=== PATIENT | female | born 1930 | race Caucasian/White ===

== ENCOUNTER → 2016-11-05 | Outpatient (CLI) | payer MEDICARE, BC ==
[~2016-11-05] MED LIST: DENOSUMAB 60 MG/ML 1 ML SYRINGE SQ ONE
[2016-11-05 13:41] VITALS: BP 160/73; PULSE 95; RESP 16; TEMP 97.8
== END | disposition home or self-care (01) ==
LOC: PROCWHC3 13:09
PROVIDERS: ATTEND Internal Medicine Rheumatology
DX: M81.0 Age-related osteoporosis without current pathological fracture (principal)
CPT/HCPCS: 96372; J0897

== ENCOUNTER 2017-02-05 22:22 | Inpatient (IN) | payer MEDICARE, BC ==
[2017-02-05] MEDS ORDERED: SODIUM CHLORIDE 0.9% 1,000 ML IV ONE (23:48)
--- NOTE | 2017-02-05 23:52 | ED ---
Wound/Laceration HPI - General Chief Complaint: Wound/Laceration Stated Complaint: diabetic wound on foot Time Seen by Provider: 02/05/17 23:21 Source: patient, family, RN notes reviewed Mode of arrival: wheelchair Limitations: no limitations - History of Present Illness Initial Comments: Patient is a 87-year-old female presents to the emergency room for evaluation of left leg wound. Patient has a history of diabetes. Patient states she noticed a small ulcerating lesion forming over her anterior ankle a few months ago. Patient states that the lesion never healed and has gotten worse since. Patient states she now has a deep ulcer over her ankle. Patient states she followed up at the wound clinic on Saturday and had at debridement the area. Patient states yesterday she noticed redness and swelling in her left foot radiating up into her lower leg. Patient states that her home nurse saw her today and advised that she come to be evaluated in the emergency room. Patient states she has an appointment with the wound clinic tomorrow. Patient denies any fevers or chills. Patient denies nausea or vomiting. - Related Data Home Medications Medication Instructions Recorded Confirmed Cyclobenzaprine [Flexeril] 10 mg PO HS 08/20/14 02/06/17 Ergocalciferol [Vitamin D2 50,000 unit PO Q28D 08/20/14 02/06/17 (DRISDOL)] Hydroxychloroquine Sulfate 200 mg PO BID 08/20/14 02/06/17 [Plaquenil] Insulin Aspart [NovoLOG] See Protocol SQ AC-TID 08/20/14 02/06/17 Insulin Detemir [Levemir] 18 units SQ HS 08/20/14 02/06/17 Levothyroxine Sodium [Synthroid] 100 mcg PO DAILY 08/20/14 02/06/17 Loratadine [Claritin] 10 mg PO DAILY 08/20/14 02/06/17 Pravastatin Sodium [Pravachol] 20 mg PO DAILY 08/20/14 02/06/17 amLODIPine [Norvasc] 5 mg PO BID 08/20/14 02/06/17 Omeprazole 20 mg PO DAILY 04/30/16 02/06/17 Acetaminophen [Tylenol Arthritis] 1,300 mg PO BID 01/28/17 02/06/17 Furosemide [Lasix] 20 mg PO SUTUTHSA 01/28/17 02/06/17 Furosemide [Lasix] 40 mg PO MOWEFR 01/28/17 02/06/17 Ranitidine HCl [Zantac] 150 mg PO BID 01/28/17 02/06/17 Cinacalcet [Sensipar] 30 mg PO Q7D 02/05/17 02/06/17 Clotrimazole/Betamethasone Dip 1 applic TOPICAL DAILY 02/05/17 02/06/17 [Lotrisone Cream] Collagenase [Santyl] 1 applic TOPICAL DAILY 02/05/17 02/06/17 Cranberry Extract [Cranberry] 500 mg PO BID 02/05/17 02/06/17 Gabapentin [Neurontin] 200 mg PO HS 02/05/17 02/06/17 L.acidoph,Paracasei, B.lactis 1 cap PO DAILY 02/05/17 02/06/17 [Probiotic] Lisinopril [Zestril] 2.5 mg PO DAILY 02/05/17 02/06/17 Magnesium Oxide [Mag-Ox] 400 mg PO DAILY 02/05/17 02/06/17 Melatonin 3 mg PO HS 02/05/17 02/06/17 Pilocarpine [Salagen] 5 mg PO TID 02/05/17 02/06/17 Allergies Allergy/AdvReac Type Severity Reaction Status Date / Time levofloxacin [From Levaquin] Allergy Rash/Hives Verified 02/05/17 23:52 Review of Systems ROS Statement: Those systems with pertinent positive or pertinent negative responses have been documented in the HPI. ROS Other: All systems not noted in ROS Statement are negative. Past Medical History Past Medical History: Diabetes Mellitus, Hypertension, Osteoarthritis (OA), Rheumatoid Arthritis (RA), Thyroid Disorder Additional Past Medical History / Comment(s): osteoporosis. sjogren's syndrome. HX UTI's History of Any Multi-Drug Resistant Organisms: None Reported Past Surgical History: Back Surgery, Joint Replacement, Orthopedic Surgery Additional Past Surgical History / Comment(s): bilateral hip replacements. right knee replacement. right ankle. Bilateral carpal tunnel surgery Past Anesthesia/Blood Transfusion Reactions: No Reported Reaction Past Psychological History: No Psychological Hx Reported Smoking Status: Never smoker Past Alcohol Use History: None Reported Past Drug Use History: None Reported - Past Family History Mother Family Medical History: Coronary Artery Disease (CAD) Father Family Medical History: Blood Disorder, Vascular Disorder Additional Family Medical History / Comment(s): from anuersym General Exam - General Exam Comments Initial Comments: Sitting in exam room, no acute distress. Limitations: no limitations General appearance: alert, in no apparent distress Head exam: Present: atraumatic, normocephalic, normal inspection Eye exam: Present: normal appearance ENT exam: Present: normal exam Neck exam: Present: normal inspection Respiratory exam: Present: normal lung sounds bilaterally. Absent: respiratory distress Cardiovascular Exam: Present: regular rate, normal rhythm, normal heart sounds Left Ankle exam: Present: full ROM, tenderness. Absent: normal inspection (1 cm in diameter deep ulceration over the anterior ankle. Erythema and edema of foot radiating up to mid lower leg circumferentially, consistent with cellulitis.) Foot/Toe exam: Present: full ROM. Absent: tenderness Neurovascular tendon exam: Absent: pulse deficit (2+ dorsal pedal circular pulses), abnormal cap refill (Capillary refill less than 2 seconds) Back exam: Present: normal inspection Neurological exam: Present: alert, oriented X3 Psychiatric exam: Present: normal affect, normal mood Skin exam: Present: warm, dry. Absent: rash Course Vital Signs 02/05/17 02/06/17 22:50 03:00 Temperature 98.3 F 97.0 F L Pulse Rate 94 90 Respiratory 18 16 Rate Blood Pressure 130/60 138/65 O2 Sat by Pulse 96 96 Oximetry Medical Decision Making - Medical Decision Making Patient is a 87-year-old female presents to the emergency room for evaluation of left leg ulcer and cellulitis. WBC within normal limits. Blood culture pending. Patient does have significant cellulitis of left lower extremity. Case discussed with Dr. Leger. Dr. Leger discussed case with Dr. Arias who agreed to admit patient. Patient will be started on Vanco. Patient will be consulted with infectious disease tomorrow. - Lab Data Result diagrams: 02/05/17 23:00 02/05/17 23:00 Lab Results 02/05/17 02/05/17 02/05/17 Range/Units 23:00 23:00 23:00 WBC 8.7 (3.8-10.6) k/uL RBC 3.77 L (3.80-5.40) m/uL Hgb 11.9 (11.4-16.0) gm/dL Hct 35.3 (34.0-46.0) % MCV 93.6 (80.0-100.0) fL MCH 31.5 (25.0-35.0) pg MCHC 33.7 (31.0-37.0) g/dL RDW 13.7 (11.5-15.5) % Plt Count 317 (150-450) k/uL Neutrophils % 73 % Lymphocytes % 13 % Monocytes % 9 % Eosinophils % 2 % Basophils % 0 % Neutrophils # 6.4 (1.3-7.7) k/uL Lymphocytes # 1.2 (1.0-4.8) k/uL Monocytes # 0.8 (0-1.0) k/uL Eosinophils # 0.1 (0-0.7) k/uL Basophils # 0.0 (0-0.2) k/uL Sodium 138 (137-145) mmol/L Potassium 4.9 (3.5-5.1) mmol/L Chloride 104 (98-107) mmol/L Carbon Dioxide 21 L (22-30) mmol/L Anion Gap 13 mmol/L BUN 41 H (7-17) mg/dL Creatinine 2.00 H (0.52-1.04) mg/dL Est GFR (MDRD) Af Amer 29 (>60 ml/min/1.73 sqM) Est GFR (MDRD) Non-Af 24 (>60 ml/min/1.73 sqM) Glucose 108 H (74-99) mg/dL Plasma Lactic Acid Jalil 0.8 (0.7-2.0) mmol/L Calcium 8.8 (8.4-10.2) mg/dL Total Bilirubin 0.5 (0.2-1.3) mg/dL AST 34 (14-36) U/L ALT 39 (9-52) U/L Alkaline Phosphatase 88 (38-126) U/L Total Protein 6.9 (6.3-8.2) g/dL Albumin 3.9 (3.5-5.0) g/dL - Radiology Data Radiology results: report reviewed, image reviewed Disposition Clinical Impression: 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
[2017-02-06 00:14] LABS: Basophils % (A) 0 %; CH 30.7; Eosinophils # (A) 0.1 k/uL (0-0.7); Eosinophils % (A) 2 %; HCT 35.3 % (34.0-46.0); HDW 2.75; HGB 11.9 gm/dL (11.4-16.0); Luc # (Auto) 0.24; Luc % (Auto) 3; Lymphocytes # (A) 1.2 k/uL (1.0-4.8); Lymphocytes % (A) 13 %; MCH 31.5 pg (25.0-35.0); MCHC 33.7 g/dL (31.0-37.0); MCV 93.6 fL (80.0-100.0); Monocytes # (A) 0.8 k/uL (0-1.0); Monocytes % (A) 9 %; Neutrophils # (A) 6.4 k/uL (1.3-7.7); Neutrophils % (A) 73 %; RBC 3.77 m/uL (3.80-5.40); RDW 13.7 % (11.5-15.5); WBC 8.7 k/uL (3.8-10.6); WBC (Perox) 9.15
[2017-02-06 00:25] LABS: Calcium 8.8 mg/dL (8.4-10.2); Potassium 4.9 mmol/L (3.5-5.1); Total Bilirubin 0.5 mg/dL (0.2-1.3); Total Protein 6.9 g/dL (6.3-8.2)
--- NOTE | 2017-02-06 01:07 | US ---
EXAM: US Duplex Left Lower Extremity Veins. CLINICAL HISTORY: Reason: Pain TECHNIQUE: Real-time ultrasound scan of the veins of the left lower extremity with color Doppler flow, spectral waveform analysis and compression. COMPARISON: No relevant prior studies available. FINDINGS: Deep veins: Unremarkable. No DVT in the common femoral, femoral or popliteal veins. Superficial veins: Unremarkable. No thrombus in the visualized greater saphenous vein. Soft tissues: No acute findings. No popliteal cyst. IMPRESSION: No deep venous thrombosis in the left lower extremity.
[2017-02-06] MEDS ORDERED: ONDANSETRON 4 MG/2 ML VIAL IVP PRN (01:22)
[2017-02-06] MEDS ORDERED: ACETAMINOPHEN TAB 325 MG TAB PO PRN (01:22)
[2017-02-06] MEDS ORDERED: NALOXONE 0.4 MG/ML 1 ML VIAL IV PRN (01:22)
[2017-02-06] MEDS ORDERED: IV VANCOMYCIN PER PHARMACY 1 EACH MISC MISCELLANE PRN (01:26)
[2017-02-06] MEDS ORDERED: CINACALCET 30 MG TAB PO SCH (02:00)
[2017-02-06] MEDS ORDERED: VANCOMYCIN 1,500 MG in SODIUM CHLORIDE 0.9% 250 ML IVPB ONE (02:00)
[2017-02-06] MEDS ORDERED: FUROSEMIDE 40 MG TAB PO SCH (02:00)
[2017-02-06] MEDS: SODIUM CHLORIDE 0.9% 1,000 ML IV SCH ×3 (02:57→22:03)
[2017-02-06 03:37] VITALS: BMI 35.7
[2017-02-06 03:37] LABS: Glucose,Whole Blood 95 mg/dL (75-99)
[2017-02-06 07:33] LABS: Glucose,Whole Blood 157 mg/dL (75-99)
[2017-02-06] MEDS: INSULIN LISPRO (humaLOG) 300 UNIT/3 ML VIAL SQ SCH ×6 (08:00→22:02)
[2017-02-06] MEDS: PILOCARPINE 5 MG TAB PO SCH ×3 (08:32→22:03)
[2017-02-06] MEDS: amLODIPine 5 MG TAB PO SCH ×2 (08:32→22:01)
[2017-02-06] MEDS: FAMOTIDINE 20 MG TAB PO SCH ×2 (08:33→22:01)
[2017-02-06] MEDS: LACTOBACILLUS ACIDOPH & BULGAR 1 EACH PACKET PO SCH (08:33)
[2017-02-06] MEDS: MAGNESIUM OXIDE 400 MG TAB PO SCH (08:34)
[2017-02-06] MEDS: HYDROXYCHLOROQUINE SULFATE 200 MG TAB PO SCH ×2 (08:34→22:02)
[2017-02-06] MEDS: PANTOPRAZOLE 40 MG TABLET PO SCH (08:34)
[2017-02-06] MEDS: LORATADINE 10 MG TAB PO SCH (08:34)
[2017-02-06] MEDS: LEVOTHYROXINE 100 MCG TAB PO SCH (08:34)
[2017-02-06] MEDS: CLOTRIMAZOLE/BETAMETH 1-0.05% CREAM 45 GM TUBE TOPICAL SCH (08:35)
[2017-02-06] MEDS: PRAVASTATIN SODIUM 20 MG TAB PO SCH (08:35)
[2017-02-06] MEDS: COLLAGENASE 250 UNIT/GM OINTMENT 30 GM TUBE TOPICAL SCH (08:35)
[2017-02-06] MEDS ORDERED: LISINOPRIL 2.5 MG TAB PO SCH (09:00)
--- NOTE | 2017-02-06 09:20 | P.CONS ---
History of Present Illness - Reason for Consult Consult date: 02/06/17 Diabetic ulcer infection - History of Present Illness This is an 87-year-old female patient at the wound healing Center with history of chronic wounds most recently with a diabetic Sousa grade 3 ulceration to the left ankle. She was last seen there on Saturday, January 30 under the care of Dr. Thomas and had debridement done. She has not been on antibiotics. She does have home care set up. Patient states that yesterday morning she was feeling lightheaded and she did have an episode of diarrhea. She was seen by her home care nurse who thought her leg looked worse with spreading redness and advised her to come into the emergency center to be checked. Patient presented to [facility] emergency center. She has been afebrile. White count 8.7, BUN 41 creatinine 2. Creatinine usually runs about 1.6. Albumin was 3.9. She underwent an ultrasound of the left lower extremity which was negative for DVT. She states she has been eating and drinking okay. She denies any change in her appetite. She denies nausea, vomiting. No fever or chills. She denies having any falls or new injuries to her left leg. She was started on vancomycin and admitted to the [facility] floor. Wound culture on January 30 shows Enterococcus faecalis, diphtheroid species, Proteus mirabilis, diphtheroid species #2. Review of Systems All systems: negative Constitutional: Denies chills, Denies fever Eyes: denies blurred vision, denies pain Ears, nose, mouth and throat: Denies dental pain, Denies headache, Denies mouth pain, Denies sore throat Cardiovascular: Reports lightheadedness, Denies chest pain, Denies shortness of breath Respiratory: Denies cough Gastrointestinal: Denies abdominal pain, Denies diarrhea, Denies nausea, Denies vomiting Genitourinary: Denies dysuria, Denies hematuria Musculoskeletal: Denies myalgias Integumentary: Reports wounds, Denies pruritus, Denies rash Neurological: Denies numbness, Denies weakness Psychiatric: Denies anxiety, Denies depression Endocrine: Denies fatigue, Denies weight change Past Medical History Past Medical History: Diabetes Mellitus, Hypertension, Osteoarthritis (OA), Rheumatoid Arthritis (RA), Thyroid Disorder Additional Past Medical History / Comment(s): osteoporosis. sjogren's syndrome. HX UTI's History of Any Multi-Drug Resistant Organisms: None Reported Past Surgical History: Back Surgery, Joint Replacement, Orthopedic Surgery Additional Past Surgical History / Comment(s): bilateral hip replacements. right knee replacement. right ankle. Bilateral carpal tunnel surgery Past Anesthesia/Blood Transfusion Reactions: No Reported Reaction Past Psychological History: No Psychological Hx Reported Smoking Status: Never smoker Past Alcohol Use History: None Reported Additional Past Alcohol Use History / Comment(s): She lives at home with her . 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 She has no contact with any animals. Past Drug Use History: None Reported - Past Family History Mother Family Medical History: Coronary Artery Disease (CAD) Father Family Medical History: Blood Disorder, Vascular Disorder Additional Family Medical History / Comment(s): from anuersym Medications and Allergies Home Medications Medication Instructions Recorded Confirmed Type Cyclobenzaprine [Flexeril] 10 mg PO HS 08/20/14 02/06/17 History Ergocalciferol [Vitamin D2 50,000 unit PO Q28D 08/20/14 02/06/17 History (DRISDOL)] Hydroxychloroquine Sulfate 200 mg PO BID 08/20/14 02/06/17 History [Plaquenil] Insulin Aspart [NovoLOG] See Protocol SQ AC-TID 08/20/14 02/06/17 History Insulin Detemir [Levemir] 18 units SQ HS 08/20/14 02/06/17 History Levothyroxine Sodium [Synthroid] 100 mcg PO DAILY 08/20/14 02/06/17 History Loratadine [Claritin] 10 mg PO DAILY 08/20/14 02/06/17 History Pravastatin Sodium [Pravachol] 20 mg PO DAILY 08/20/14 02/06/17 History amLODIPine [Norvasc] 5 mg PO BID 08/20/14 02/06/17 History Omeprazole 20 mg PO DAILY 04/30/16 02/06/17 History Acetaminophen [Tylenol Arthritis] 1,300 mg PO BID 01/28/17 02/06/17 History Furosemide [Lasix] 20 mg PO SUTUTHSA 01/28/17 02/06/17 History Furosemide [Lasix] 40 mg PO MOWEFR 01/28/17 02/06/17 History Ranitidine HCl [Zantac] 150 mg PO BID 01/28/17 02/06/17 History Cinacalcet [Sensipar] 30 mg PO Q7D 02/05/17 02/06/17 History Clotrimazole/Betamethasone Dip 1 applic TOPICAL DAILY 02/05/17 02/06/17 History [Lotrisone Cream] Collagenase [Santyl] 1 applic TOPICAL DAILY 02/05/17 02/06/17 History Cranberry Extract [Cranberry] 500 mg PO BID 02/05/17 02/06/17 History Gabapentin [Neurontin] 200 mg PO HS 02/05/17 02/06/17 History L.acidoph,Paracasei, B.lactis 1 cap PO DAILY 02/05/17 02/06/17 History [Probiotic] Lisinopril [Zestril] 2.5 mg PO DAILY 02/05/17 02/06/17 History Magnesium Oxide [Mag-Ox] 400 mg PO DAILY 02/05/17 02/06/17 History Melatonin 3 mg PO HS 02/05/17 02/06/17 History Pilocarpine [Salagen] 5 mg PO TID 02/05/17 02/06/17 History Allergies Allergy/AdvReac Type Severity Reaction Status Date / Time levofloxacin [From Levaquin] Allergy Rash/Hives Verified 02/05/17 23:52 Physical Exam Vitals: Vital Signs Temp Pulse Pulse Resp BP BP Pulse Ox 02/06/17 07:00 96.3 F L 99 16 159/78 93 L 02/06/17 04:00 16 02/06/17 03:46 97.1 F L 90 16 144/69 94 L 02/06/17 03:00 97.0 F L 90 16 138/65 96 Intake and Output 02/05/17 02/06/17 02/06/17 22:59 06:59 14:59 Other: Voiding Method Bedside Commode Diaper Incontinent # Voids 2 Weight 91.5 kg Gen: This is a 87-year-old female. She is sitting up in bed appears to be in no acute distress. HEENT: Head is atraumatic, normocephalic. Pupils equal, round. Sclerae is anicteric. Gentle a slightly pale. Mucous membranes of the mouth are somewhat dry. NECK: Supple. No JVD. No lymphadenopathy. No thyromegaly. LUNGS: Clear to auscultation. No wheezes or rhonchi. No intercostal retractions. HEART: Regular rate and rhythm. No murmur. ABDOMEN: Soft. Bowel sounds are present. No masses. No tenderness. EXTREMITIES: 1+ pedal edema to the right lower extremity with erythema from the toes to the proximal tib-fib area. Ulcer noted to the anterior ankle. Dorsalis pedis + 1 bilaterally. NEUROLOGICAL: Patient is awake, alert and oriented x3. Cranial nerves 2 through 12 are grossly intact. Results Results: Laboratory Results WBC 8.7 k/uL (3.8-10.6) 02/05/17 23: RBC 3.77 m/uL (3.80-5.40) L 02/05/17: Hgb 11.9 gm/dL (11.4-16.0) 02/05/17: Hct 35.3 % (34.0-46.0) 02/05/17: MCV 93.6 fL (80.0-100.0) 02/05/17: MCH 31.5 pg (25.0-35.0) 02/05/17: MCHC 33.7 g/dL (31.0-37.0) 02/05/17: RDW 13.7 % (11.5-15.5) 02/05/17 23: Plt Count 317 k/uL (150-450) 02/05/17 23: Neutrophils % 73 % 02/05/17 23: Lymphocytes % 13 % 02/05/17: Monocytes % 9 % 02/05/17 23: Eosinophils % 2 % 02/05/17 23: Basophils % 0 % 02/05/17 23:00 Neutrophils # 6.4 k/uL (1.3-7.7) 02/05/17 23: Lymphocytes # 1.2 k/uL (1.0-4.8) 02/05/17 23: Monocytes # 0.8 k/uL (0-1.0) 02/05/17 23: Eosinophils # 0.1 k/uL (0-0.7) 02/05/17 23: Basophils # 0.0 k/uL (0-0.2) 02/05/17 23:00 Sodium 138 mmol/L (137-145) 02/05/17 23:00 Potassium 4.9 mmol/L (3.5-5.1) 02/05/17 23:00 Chloride 104 mmol/L (98-107) 02/05/17 23:00 Carbon Dioxide 21 mmol/L (22-30) L 02/05/17 23:00 Anion Gap 13 mmol/L 02/05/17 23:00 BUN 41 mg/dL (7-17) H 02/05/17 23:00 Creatinine 2.00 mg/dL (0.52-1.04) H 02/05/17 23:00 Est GFR (MDRD) Af Amer 29 (>60 ml/min/1.73 sqM) 02/05/17 23:00 Est GFR (MDRD) Non-Af 24 (>60 ml/min/1.73 sqM) 02/05/17 23:00 Glucose 108 mg/dL (74-99) H 02/05/17 23:00 POC Glucose (mg/dL) 157 mg/dL (75-99) H 02/06/17 07:14 POC Glu Oil Gauger ID Leena Ortega 02/06/17 07:14 Plasma Lactic Acid Jalil 0.8 mmol/L (0.7-2.0) 02/05/17 23:00 Calcium 8.8 mg/dL (8.4-10.2) 02/05/17 23:00 Total Bilirubin 0.5 mg/dL (0.2-1.3) 02/05/17 23:00 AST 34 U/L (14-36) 02/05/17 23:00 ALT 39 U/L (9-52) 02/05/17 23:00 Alkaline Phosphatase 88 U/L (38-126) 02/05/17 23:00 Total Protein 6.9 g/dL (6.3-8.2) 02/05/17 23:00 Albumin 3.9 g/dL (3.5-5.0) 02/05/17 23:00 CBC & Chem 7: 02/05/17 23:00 02/05/17 23:00 Labs: Abnormal Lab Results - Last 24 Hours (Table) 02/06/17 Range/Units 07:14 POC Glucose (mg/dL) 157 H (75-99) mg/dL Assessment and Plan Plan: This is an 87-year-old female who presented to the hospital with diabetic ulcer to the left lower extremity with increasing erythema and edema. Patient has been started on vancomycin which will be continued. Local wound care will be addressed. She has a wound culture previously obtained on January 30 through the wound healing Center. Blood culture is status received. Hemoglobin A1c is pending. Tight glucose control will be necessary to 8 in healing. Continue supportive care. Further recommendations as patient progresses. The above dictated assessment and findings were discussed with Dr. Melendrez. The impression and plan of care have been directed as dictated. Jayna Baker nurse practitioner acting as scribe for Dr. Melendrez. Time with Patient: Greater than 30
[2017-02-06 10:25] LABS: Basophils % (A) 0 %; CH 30.6; CHCM 32.1; Eosinophils # (A) 0.1 k/uL (0-0.7); Eosinophils % (A) 1 %; HCT 31.5 % (34.0-46.0); HGB 10.4 gm/dL (11.4-16.0); Luc # (Auto) 0.14; Luc % (Auto) 2; Lymphocytes # (A) 0.7 k/uL (1.0-4.8); Lymphocytes % (A) 11 %; MCH 31.6 pg (25.0-35.0); MCV 95.8 fL (80.0-100.0); Mean Platelet Volume 6.8; Monocytes # (A) 0.4 k/uL (0-1.0); Monocytes % (A) 6 %; Neutrophils # (A) 5.3 k/uL (1.3-7.7); Neutrophils % (A) 80 %; RBC 3.28 m/uL (3.80-5.40); RDW 13.8 % (11.5-15.5); WBC 6.6 k/uL (3.8-10.6)
[2017-02-06] MEDS: MORPHINE SULFATE 4 MG/ML SYRINGE IV PRN ×3 (11:37→22:15)
[2017-02-06 11:55] LABS: Glucose,Whole Blood 233 mg/dL (75-99)
[2017-02-06 13:18] LABS: Hemoglobin A1C 5.9 % (4.2-6.1)
--- NOTE | 2017-02-06 13:58 | HP ---
DATE OF ADMISSION: Patient is a pleasant 87-year-old female was sent in from the Wound Center because of significant extra and extensive cellulitis of the left foot, the patient is diabetic and has a left foot diabetic ulcer in the left leg area with cellulitis extending up to the knee area involving the whole leg and patient has a small ulcer in the dorsum of the foot which is about stage III, which is probably a diabetic foot ulcer and patient was already evaluated by Infectious Disease and patient is on vancomycin at this point of time and with a little bit of improvement in her cellulitis and patient had an ultrasound of the left lower extremity which is negative for any DVT and patient denied any fever, chills. Patient basically came in because of the pain and discoloration secondary to cellulitis. Patient does have history of Sjogren's for which patient is on immunosuppressants in the form of hydroxychloroquine or Plaquenil, which may have contributed to her severity of her cellulitis and patient does have CKD although patient does have acute renal failure. Patient never had any congestive heart failure history and never was admitted for CHF exacerbation, probably Lasix is not appropriate and patient will need compression socks and elevation of the legs for now. Lasix will be discontinued because it is affecting the kidney and even the Plaquenil dose may need to be reduced and I do not believe lisinopril is necessary at this point of time either because of the renal dysfunction with an acute component that will be discontinued as well. Patient will eventually once her kidney function stabilizes, will actually benefit from a lisinopril. For now will go ahead continue with amlodipine. REVIEW OF SYSTEMS: CONSTITUTIONAL: No fever, no malaise, no fatigue. HEENT: No recent visual problems or hearing problems. Denied any sore throat. CARDIOVASCULAR: No chest pain, orthopnea, PND, no palpitations, no syncope. PULMONARY: No shortness of breath, no cough, no hemoptysis. GASTROINTESTINAL: No diarrhea, no nausea, no vomiting, no abdominal pain. Normoactive bowel sounds. NEUROLOGICAL: No headaches, no weakness, no numbness. HEMATOLOGICAL: Denies any bleeding or petechiae. GENITOURINARY: Denies any burning micturition, frequency, or urgency. MUSCULOSKELETAL/RHEUMATOLOGICAL: Denies any joint pain, swelling, or any muscle pain. ENDOCRINE: Denies any polyuria or polydipsia. DERMATOLOGIC: As described in HPI. The rest of the 14 point review of systems is negative. PAST MEDICAL HISTORY: Diabetes mellitus, hypertension, osteoarthritis, and Sjogren's syndrome and osteoporosis, hypothyroidism. SOCIAL HISTORY: Denied any smoking, alcohol abuse or any drug abuse. FAMILY HISTORY: Mother had coronary artery disease and father had some kind of vascular disorder, from aneurysm. Home medications include: 1. Cyclobenzaprine. 2. Ergocalciferol hydroxychloroquine. 3. NovoLog. 4. Levemir 18 units. 5. Levothyroxine. 6. Loratadine. 7. Pravastatin. 8. Amlodipine. 9. Acetaminophen. 10. Lasix. 11. Ranitidine. 12. Cinacalcet. 13. Clotrimazole/betamethasone topical with collagenase. 14. Cranberry juice. 15. Gabapentin. 16. Lisinopril. 17. Magnesium oxide. 18. Melatonin. 19. Pilocarpine. ALLERGIES: Allergic to LEVOFLOXACIN. PHYSICAL EXAMINATION: Temperature 96.3, pulse of 99, respiratory rate of 16. Blood pressure 159/78, saturating at 93% on room air. PHYSICAL EXAMINATION: GENERAL: The patient is alert and oriented x3, not in any acute distress. Well developed, well nourished. HEENT: Pupils are round and equally reacting to light. EOMI. No scleral icterus. No conjunctival pallor. Normocephalic, atraumatic. No pharyngeal erythema. No thyromegaly. CARDIOVASCULAR: S1 and S2 present. No murmurs, rubs, or gallops. PULMONARY: Chest is clear to auscultation, no wheezing or crackles. ABDOMEN: Soft, nontender, nondistended, normoactive bowel sounds. No palpable organomegaly. MUSCULOSKELETAL: No joint swelling or deformity. NEUROLOGICAL: Gross neurological examination did not reveal any focal deficits. SKIN: No rashes. Left lower extremity and redness and ulcer, which is probably stage III as described above. Patient has localized of temperature in the cellulitic area as described in HPI and discoloration. LABORATORY DATA: CBC, CMP are abnormal for mildly low hemoglobin of 10.4, which appears to be chronic. Will need further evaluation as an outpatient, probably anemia of chronic kidney disease and bicarbonate of 21 and BUN of 41 creatinine of 2.0. Baseline appears to be around 1.6, which is stage III CKD and GFR of 29 which is consistent with stage III CKD. ASSESSMENT AND PLAN: 1. Left lower limb cellulitis. Patient is on vancomycin, left lower limb cellulitis and patient is immunosuppressed with hydroxychloroquine as well as diabetic and patient has a diabetic foot ulcer as well for which patient will need local wound care and patient is on IV antibiotics as mentioned above. 2. AKA chronic kidney disease stage III. Chronic kidney disease is basically because of diabetic nephropathy and AKA due to excessive diuretic therapy and lisinopril both of which will be held. 3. Hypertension. 4. Diabetes mellitus type 2. Will monitor the blood sugar, up-titrate the insulin as required and as of now patient's blood sugars are not that high because of her acute renal dysfunction. Patient has an anion gap, but lactic acid is only 0.8. Will continue with IV fluid she is on at this point of time. 5. Scleroderma. Patient is on 200 b.i.d. of hydroxychloroquine, we may need to cut it down and patient is also pilocarpine with will be continued. 6. Osteoarthritis. 7. Hypertension. 8. Hypothyroidism. For the above mentioned rest of the chronic medical problems except for those mentioned above, the rest of the medications will be continued.
[2017-02-06 16:48] LABS: Glucose,Whole Blood 98 mg/dL (75-99)
[2017-02-06 21:08] LABS: Glucose,Whole Blood 192 mg/dL (75-99)
[2017-02-06] MEDS: ACETAMINOPHEN TAB 500 MG TAB PO SCH (22:00)
[2017-02-06] MEDS: CYCLOBENZAPRINE 10 MG TAB PO SCH (22:01)
[2017-02-06] MEDS: GABAPENTIN 100 MG CAP PO SCH (22:02)
[2017-02-06] MEDS: MELATONIN 3 MG TABLET PO SCH (22:03)
--- NOTE | 2017-02-06 23:07 | P.CON ---
Consult Note - . 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 She was last seen there on Saturday, January 30 under the care of Dr. Thomas and had debridement done. She has not been on antibiotics. She does have home care set up. Patient states that yesterday morning she was feeling lightheaded and she did have an episode of diarrhea. She was seen by her home care nurse who thought her leg looked worse with spreading redness and advised her to come into the emergency center to be checked. Patient presented to [facility] emergency center. She has been afebrile. White count 8.7, BUN 41 creatinine 2. Creatinine usually runs about 1.6. Albumin was 3.9. She underwent an ultrasound of the left lower extremity which was negative for DVT. She states she has been eating and drinking okay. She denies any change in her appetite. She denies nausea, vomiting. No fever or chills. She denies having any falls or new injuries to her left leg. She was started on vancomycin and admitted to the [facility] floor. Wound culture on January 30 shows Enterococcus faecalis, diphtheroid species, Proteus mirabilis, diphtheroid species #2. Please see the consult note is dictated by nurse practitioner Mrs. Jayna Baker. Pleasant 87 -year-old woman who has a history of staphylococcal sepsis. And then a bout of E. coli sepsis in 2013. Now presents with the significant worsening ulceration to the left distal leg anterior surface associated with extensive cellulitis. Patient is somewhat uncomfortable due to the swelling and infection. Seems to be more comfortable at this time and earlier in the day. Outpatient cultures are reviewed and antibiotic therapy is altered to ampicillin sulbactam to cover the 4 isolate pathogens. Local wound care will be with opticell silver. Elevate the leg as much as she can tolerate Cultures are in process to ensure there is no bacteremia May require intravenous antibiotic therapy. Bone scan will be requested to ensure there is no deeper infection. I agree with evaluation, assessment and plan as dictated by nurse practitioner Mrs. Jayna Baker.
[2017-02-06] MEDS: AMPICILLIN-SULBACTAM 3 GM in SODIUM CHLORIDE 0.9% 100 ML IVPB SCH (23:16)
[2017-02-07] MEDS ORDERED: FUROSEMIDE 20 MG TAB PO SCH (01:51)
[2017-02-07] MEDS: MORPHINE SULFATE 4 MG/ML SYRINGE IV PRN ×2 (04:45→09:27)
[2017-02-07 07:38] LABS: Glucose,Whole Blood 138 mg/dL (75-99)
[2017-02-07] MEDS: AMPICILLIN-SULBACTAM 3 GM in SODIUM CHLORIDE 0.9% 100 ML IVPB SCH ×3 (08:05→23:20)
[2017-02-07] MEDS: PILOCARPINE 5 MG TAB PO SCH ×3 (08:05→21:05)
[2017-02-07] MEDS: LACTOBACILLUS ACIDOPH & BULGAR 1 EACH PACKET PO SCH (08:05)
[2017-02-07] MEDS: amLODIPine 5 MG TAB PO SCH ×2 (08:06→21:32)
[2017-02-07] MEDS: PRAVASTATIN SODIUM 20 MG TAB PO SCH (08:06)
[2017-02-07] MEDS: COLLAGENASE 250 UNIT/GM OINTMENT 30 GM TUBE TOPICAL SCH (08:06)
[2017-02-07] MEDS: HYDROXYCHLOROQUINE SULFATE 200 MG TAB PO SCH ×2 (08:06→21:33)
[2017-02-07] MEDS: ACETAMINOPHEN TAB 500 MG TAB PO SCH ×2 (08:07→21:26)
[2017-02-07] MEDS: FAMOTIDINE 20 MG TAB PO SCH (08:07)
[2017-02-07] MEDS: CLOTRIMAZOLE/BETAMETH 1-0.05% CREAM 45 GM TUBE TOPICAL SCH (08:07)
[2017-02-07] MEDS: LORATADINE 10 MG TAB PO SCH (08:10)
[2017-02-07] MEDS: PANTOPRAZOLE 40 MG TABLET PO SCH (08:10)
[2017-02-07] MEDS: MAGNESIUM OXIDE 400 MG TAB PO SCH (08:10)
[2017-02-07] MEDS: LEVOTHYROXINE 100 MCG TAB PO SCH (08:10)
[2017-02-07] MEDS: INSULIN LISPRO (humaLOG) 300 UNIT/3 ML VIAL SQ SCH ×8 (08:25→21:30)
[2017-02-07] MEDS ORDERED: VANCOMYCIN 1,250 MG in SODIUM CHLORIDE 0.9% 250 ML IVPB ONE (09:00)
[2017-02-07 09:07] LABS: CH 30.3; CHCM 31.6; HCT 30.9 % (34.0-46.0); HDW 2.66; HGB 9.8 gm/dL (11.4-16.0); Hypochromasia Slight; MCH 30.5 pg (25.0-35.0); MCHC 31.6 g/dL (31.0-37.0); MCV 96.5 fL (80.0-100.0); Mean Platelet Volume 6.9; RDW 13.7 % (11.5-15.5); WBC 5.4 k/uL (3.8-10.6)
[2017-02-07 09:20] LABS: Anion Gap 9 mmol/L; Blood Urea Nitrogen 27 mg/dL (7-17); Calcium 8.3 mg/dL (8.4-10.2); Carbon Dioxide 19 mmol/L (22-30); Chloride 112 mmol/L (98-107); Glucose 142 mg/dL (74-99); Non-African American GFR(MDRD) 50 (>60 ml/min/1.73 sqM); Potassium 5.1 mmol/L (3.5-5.1); Sodium 140 mmol/L (137-145)
[2017-02-07] MEDS: SODIUM CHLORIDE 0.9% 1,000 ML IV SCH (11:02)
[2017-02-07 12:01] LABS: Glucose,Whole Blood 182 mg/dL (75-99)
--- NOTE | 2017-02-07 14:01 | PN ---
Patient is an 87-year-old admitted with left lower limb cellulitis and patient has previous cultures showed enterococcus and Proteus mirabilis because of which Unasyn was added by Dr. Melendrez and patient's cellulitis did not improve significantly although her kidney function improved significantly with discontinuation of PAULINE inhibitor as well as diuretic therapy. 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 Her creatinine is 1 from 2 yesterday and patient benefit from compression socks rather than Lasix, considering that Lasix is making her significantly dehydrated and putting her into renal dysfunction. REVIEW OF SYSTEMS: DERMATOLOGICAL: As described in HPI. CARDIOVASCULAR: No chest pain, no orthopnea, no PND, no palpitations. PULMONARY: Denied any shortness of breath. No cough or hemoptysis. GASTROINTESTINAL: No diarrhea, nausea or vomiting. No abdominal pain. Normoactive bowel sounds. NEUROLOGIC: No headaches, no weakness, no numbness. Medications were reviewed. PHYSICAL EXAMINATION: Temperature 96.7, pulse of 98, respiratory rate of 20, blood pressure is 152/69, saturating at 94% on room air. GENERAL: The patient is alert and oriented x3, not in any acute distress. Well developed, well nourished. HEENT: Pupils are round and equally reacting to light. EOMI. No scleral icterus. No conjunctival pallor. Normocephalic, atraumatic. No pharyngeal erythema. No thyromegaly. CARDIOVASCULAR: S1 and S2 present. No murmurs, rubs, or gallops. PULMONARY: Chest is clear to auscultation, no wheezing or crackles. ABDOMEN: Soft, nontender, nondistended, normoactive bowel sounds. No palpable organomegaly. MUSCULOSKELETAL: No joint swelling or deformity. EXTREMITIES: No cyanosis, clubbing, or pedal edema. NEUROLOGICAL: Gross neurological examination did not reveal any focal deficits. DERMATOLOGIC: No significant change compared to yesterday. LABORATORY DATA: CBC, CMP are abnormal for elevated chloride of 112 and hemoglobin of 9.8, bicarbonate of 19, BUN of 27, creatinine 1.04, both of which significantly improved compared to yesterday. ASSESSMENT AND PLAN: 1. Left lower limb cellulitis. Continue with vancomycin and IV antibiotics. 2. Acute kidney injury secondary to excessive diuretic therapy as well as PAULINE inhibitor which are being held with significant improvement. 3. 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 4. Type 2 diabetes mellitus. 5. Hypertension. 6. Scleroderma for which patient is on hydroxychloroquine and also pilocarpine, which will be continued. 7. Osteoarthritis, 8. Hypertension management as mentioned above. 9. Hypothyroidism, continue with levothyroxine.
--- NOTE | 2017-02-07 15:50 | NM ---
EXAMINATION TYPE: NM bone 3 phase DATE OF EXAM: 02/07/2017 3:41 PM COMPARISON: NONE HISTORY: 87-year-old female evaluated for osteomyelitis of the distal left leg. Left ankle bone pain for 2 months. TECHNIQUE: Triple phase bone scintigraphy was performed following the injection of24.2 mCi Tc 99m MDP . Immediate images, pool images, and 3.5 hours post injection images acquired. Imaging performed of the bilateral distal lower extremities. FINDINGS: There is asymmetric hyperemia to the left lower extremity. Full images show increased soft tissue upt sarah along the medial aspect of the mid to distal left leg. Delayed images show incomplete clearance o f activity from the soft tissues. There is prior right knee total arthroplasty. The left ankle and foot shows no significant asymmetric increased tracer activity on delayed images. IMPRESSION: No convincing scintigraphic findings of osteomyelitis within the distal left lower extremity. There i s hyperemia and increased soft tissue uptake along the medial aspect of the mid to distal left leg th at could represent cellulitis.
[2017-02-07 17:21] LABS: Glucose,Whole Blood 127 mg/dL (75-99)
[2017-02-07 20:55] LABS: Glucose,Whole Blood 189 mg/dL (75-99)
[2017-02-07] MEDS ORDERED: INSULIN DETEMIR 100 UNIT/ML 10 ML VIAL SQ SCH (21:00)
[2017-02-07] MEDS: GABAPENTIN 100 MG CAP PO SCH (21:32)
[2017-02-07] MEDS: CYCLOBENZAPRINE 10 MG TAB PO SCH (21:32)
[2017-02-07] MEDS: MELATONIN 3 MG TABLET PO SCH (21:33)
--- NOTE | 2017-02-07 22:45 | P.PN ---
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 She was last seen there on January 30 under the care of Dr. Thomas and had debridement done. She has not been on antibiotics. She does have home care set up. Patient states that yesterday morning she was feeling lightheaded and she did have an episode of diarrhea. She was seen by her home care nurse who thought her leg looked worse with spreading redness and advised her to come into the emergency center to be checked. Patient presented to [facility] emergency center. She has been afebrile. White count 8.7, BUN 41 creatinine 2. Creatinine usually runs about 1.6. Albumin was 3.9. She underwent an ultrasound of the left lower extremity which was negative for DVT. She states she has been eating and drinking okay. She denies any change in her appetite. She denies nausea, vomiting. No fever or chills. She denies having any falls or new injuries to her left leg. She was started on vancomycin and admitted to the [facility] floor. Wound culture on January 30 shows Enterococcus faecalis, diphtheroid species, Proteus mirabilis, diphtheroid species #2. Antibiotic therapy was altered to Unasyn. Patient is improving today. Bone scan was requested which reveals evidence of no osteomyelitis with cellulitis. Patient slightly improved today. Objective - Vital Signs Vital signs: Vital Signs Temp 98.2 F 02/07/17 22:02 Pulse 106 H 02/07/17 22:02 Resp 15 02/07/17 22:02 BP 145/69 02/07/17 22:02 Pulse Ox 96 02/07/17 22:02 Intake & Output 02/07/17 02/07/17 02/08/17 06:59 18:59 06:59 Intake Total 600 800 Balance 600 800 Weight 91.5 kg Intake: Intake, IV Titration 400 Amount Ampicillin-Sulbactam 3 gm 200 In Sodium Chloride 0.9% 100 ml @ 100 mls/hr IVPB Q8HR [facility]WOOD Rx#:[id number] Sodium Chloride 0.9% 1, 200 000 ml @ 100 mls/hr IV . Q10H [facility]OD Rx#:[id number] Oral 600 400 Other: Voiding Method Bedside Commode Bedside Commode Diaper Diaper Incontinent Incontinent # Voids 2 2 1 # Bowel Movements 1 - Exam Gen: This is a 87-year-old female. She is sitting up in bed appears to be in no acute distress. HEENT: Head is atraumatic, normocephalic. Pupils equal, round. Sclerae is anicteric. Gentle a slightly pale. Mucous membranes of the mouth are somewhat dry. NECK: Supple. No JVD. No lymphadenopathy. No thyromegaly. LUNGS: Clear to auscultation. No wheezes or rhonchi. No intercostal retractions. HEART: Regular rate and rhythm. No murmur. ABDOMEN: Soft. Bowel sounds are present. No masses. No tenderness. EXTREMITIES: 1+ pedal edema to the right lower extremity with erythema from the toes to the proximal tib-fib area. Ulcer noted to the anterior ankle. Dorsalis pedis + 1 bilaterally. NEUROLOGICAL: Patient is awake, alert and oriented x3 - Labs CBC & Chem 7: 02/07/17 07:50 02/07/17 07:50 Labs: Abnormal Lab Results - Last 24 Hours (Table) 02/07/17 02/07/17 02/07/17 Range/Units 07:30 07:50 07:50 RBC 3.20 L (3.80-5.40) m/uL Hgb 9.8 L (11.4-16.0) gm/dL Hct 30.9 L (34.0-46.0) % Chloride 112 H (98-107) mmol/L Carbon Dioxide 19 L (22-30) mmol/L BUN 27 H (7-17) mg/dL Glucose 142 H (74-99) mg/dL POC Glucose (mg/dL) 138 H (75-99) mg/dL Calcium 8.3 L (8.4-10.2) mg/dL 02/07/17 02/07/17 02/07/17 Range/Units 11:57 17:10 20:33 RBC (3.80-5.40) m/uL Hgb (11.4-16.0) gm/dL Hct (34.0-46.0) % Chloride (98-107) mmol/L Carbon Dioxide (22-30) mmol/L BUN (7-17) mg/dL Glucose (74-99) mg/dL POC Glucose (mg/dL) 182 H 127 H 189 H (75-99) mg/dL Calcium (8.4-10.2) mg/dL Laboratory Results WBC 5.4 k/uL (3.8-10.6) 02/07/17 07:50 RBC 3.20 m/uL (3.80-5.40) L 02/07/17 07:50 Hgb 9.8 gm/dL (11.4-16.0) L 02/07/17 07:50 Hct 30.9 % (34.0-46.0) L 02/07/17 07:50 MCV 96.5 fL (80.0-100.0) 02/07/17 07:50 MCH 30.5 pg (25.0-35.0) 02/07/17 07:50 MCHC 31.6 g/dL (31.0-37.0) 02/07/17 07:50 RDW 13.7 % (11.5-15.5) 02/07/17 07:50 Plt Count 248 k/uL (150-450) 02/07/17 07:50 Neutrophils % 80 % 02/06/17 09:35 Lymphocytes % 11 % 02/06/17 09:35 Monocytes % 6 % 02/06/17 09:35 Eosinophils % 1 % 02/06/17 09:35 Basophils % 0 % 02/06/17 09:35 Neutrophils # 5.3 k/uL (1.3-7.7) 02/06/17 09:35 Lymphocytes # 0.7 k/uL (1.0-4.8) L 02/06/17 09:35 Monocytes # 0.4 k/uL (0-1.0) 02/06/17 09:35 Eosinophils # 0.1 k/uL (0-0.7) 02/06/17 09:35 Basophils # 0.0 k/uL (0-0.2) 02/06/17 09:35 Hypochromasia Slight 02/07/17 07:50 Sodium 140 mmol/L (137-145) 02/07/17 07:50 Potassium 5.1 mmol/L (3.5-5.1) 02/07/17 07:50 Chloride 112 mmol/L (98-107) H 02/07/17 07:50 Carbon Dioxide 19 mmol/L (22-30) L 02/07/17 07:50 Anion Gap 9 mmol/L 02/07/17 07:50 BUN 27 mg/dL (7-17) H 02/07/17 07:50 Creatinine 1.04 mg/dL (0.52-1.04) 02/07/17 07:50 Est GFR (MDRD) Af Amer >60 (>60 ml/min/1.73 sqM) 02/07/17 07:50 Est GFR (MDRD) Non-Af 50 (>60 ml/min/1.73 sqM) 02/07/17 07:50 Glucose 142 mg/dL (74-99) H 02/07/17 07:50 POC Glucose (mg/dL) 189 mg/dL (75-99) H 02/07/17 20:33 POC Glu [employer] ID Virgen Dolan 02/07/17 20:[address] Glu mg/dL 123 mg/dL 02/06/17 09:35 Hemoglobin A1c 5.9 % (4.2-6.1) 02/06/17 09:35 Plasma Lactic Acid Jalil 0.8 mmol/L (0.7-2.0) 02/05/17 23:00 Calcium 8.3 mg/dL (8.4-10.2) L 02/07/17 07:50 Total Bilirubin 0.5 mg/dL (0.2-1.3) 02/05/17 23:00 AST 34 U/L (14-36) 02/05/17 23:00 ALT 39 U/L (9-52) 02/05/17 23:00 Alkaline Phosphatase 88 U/L (38-126) 02/05/17 23:00 Total Protein 6.9 g/dL (6.3-8.2) 02/05/17 23:00 Albumin 3.9 g/dL (3.5-5.0) 02/05/17 23:00 Microbiology 02/05/17 23:00 Blood Blood Culture - Preliminary No Growth after 24 hours Assessment and Plan (1) Diabetic ulcer of left ankle associated with diabetes mellitus due to underlying condition Narrative/Plan: 87-year-old presents to Hospital of evidence of a significant diabetic lower extremity ulceration. He developed extensive cellulitis around the ulceration. It was ascending and painful. Because of this she was admitted to hospital. She has outpatient cultures that show evidence of multiple pathogens and her antibiotic therapy was altered to Unasyn. There's been some slight improvement. Local wound care has also been initiated. She is tolerating this quite well. Improved glucose control is in process. In control seems to be adequate. Having no further fever. The acute renal failure noted at admission is also improved with hydration. Plan current antibiotic therapy into this further improvement and there is the option of altering this to oral Augmentin when she is improved. With a negative bone scan will not need outpatient intravenous antibiotic therapy. Status: Acute
[2017-02-08 07:25] LABS: Glucose,Whole Blood 70 mg/dL (75-99)
[2017-02-08 07:33] VITALS: BP 127/60; PULSE 98; RESP 16; TEMP 97.5
[2017-02-08 08:03] LABS: Calcium 8.6 mg/dL (8.4-10.2); Potassium 4.8 mmol/L (3.5-5.1)
[2017-02-08] MEDS: amLODIPine 5 MG TAB PO SCH (08:16)
[2017-02-08] MEDS: INSULIN LISPRO (humaLOG) 300 UNIT/3 ML VIAL SQ SCH ×4 (08:16→12:24)
[2017-02-08] MEDS: PILOCARPINE 5 MG TAB PO SCH (08:17)
[2017-02-08] MEDS: MAGNESIUM OXIDE 400 MG TAB PO SCH (08:17)
[2017-02-08] MEDS: LEVOTHYROXINE 100 MCG TAB PO SCH (08:17)
[2017-02-08] MEDS: LACTOBACILLUS ACIDOPH & BULGAR 1 EACH PACKET PO SCH (08:17)
[2017-02-08] MEDS: PANTOPRAZOLE 40 MG TABLET PO SCH (08:17)
[2017-02-08] MEDS: LORATADINE 10 MG TAB PO SCH (08:17)
[2017-02-08] MEDS: HYDROXYCHLOROQUINE SULFATE 200 MG TAB PO SCH (08:17)
[2017-02-08] MEDS: PRAVASTATIN SODIUM 20 MG TAB PO SCH (08:17)
[2017-02-08] MEDS: AMPICILLIN-SULBACTAM 3 GM in SODIUM CHLORIDE 0.9% 100 ML IVPB SCH (08:19)
[2017-02-08] MEDS: ACETAMINOPHEN TAB 500 MG TAB PO SCH (08:19)
[2017-02-08] MEDS: COLLAGENASE 250 UNIT/GM OINTMENT 30 GM TUBE TOPICAL SCH (10:23)
[2017-02-08 11:58] LABS: Glucose,Whole Blood 177 mg/dL (75-99)
[2017-02-08] MEDS: CLOTRIMAZOLE/BETAMETH 1-0.05% CREAM 45 GM TUBE TOPICAL SCH (12:24)
[2017-02-08] MEDS ORDERED: CINACALCET 30 MG TAB PO SCH (21:00)
--- NOTE | 2017-02-09 09:13 | DS ---
DATE OF ADMISSION: 02/06/2017 DATE OF DISCHARGE: 02/08/2017 87-year-old admitted with left lower limb cellulitis and patient has a small ulcer on the dorsal aspect of the left foot which is improving, although cellulitis did not improve significantly compared to couple of days and patient when she came in her creatinine was 2 and patient was believed to have CKD, although patient mostly has acute renal failure, which improved with discontinuation of diuretic and PAULINE inhibitor and I do not believe she will require either of these medications and patient needs to use compression socks for her bilateral lower extremity swelling as Lasix is affecting her kidney. 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 Patient probably down the line if her kidney function remains stable can be started on PAULINE inhibitor for ( ) at that time amlodipine needs to be discontinued as her blood pressure cannot go down. It is already borderline normal on the lower side. REVIEW OF SYSTEMS: CARDIOVASCULAR: No chest pain, no orthopnea, no PND, no palpitations. PULMONARY: Denied any shortness of breath. No cough or hemoptysis. GASTROINTESTINAL: No diarrhea, nausea or vomiting. No abdominal pain. Normoactive bowel sounds. NEUROLOGIC: No headaches, no weakness, no numbness. Medications were reviewed. PHYSICAL EXAMINATION: Temperature 97.5, pulse of 98, respiratory rate of 16, blood pressure is 127/60, saturating at 95% on room air. GENERAL: The patient is alert and oriented x3, not in any acute distress. Well developed, well nourished. HEENT: Pupils are round and equally reacting to light. EOMI. No scleral icterus. No conjunctival pallor. Normocephalic, atraumatic. No pharyngeal erythema. No thyromegaly. CARDIOVASCULAR: S1 and S2 present. No murmurs, rubs, or gallops. PULMONARY: Chest is clear to auscultation, no wheezing or crackles. ABDOMEN: Soft, nontender, nondistended, normoactive bowel sounds. No palpable organomegaly. MUSCULOSKELETAL: No joint swelling or deformity. EXTREMITIES: No cyanosis, clubbing, or pedal edema. NEUROLOGICAL: Gross neurological examination did not reveal any focal deficits. SKIN: As described in HPI. No significant change compared to yesterday. Patient does have localized of temperature, although ulcer on the dorsal aspect of the left foot has improved and patient bone scan is not consistent with osteomyelitis. ASSESSMENT AND PLAN: 1. Left lower limb cellulitis. The patient is on Unasyn at this point of time and patient will be discharged on Augmentin. Medications duration and regimen as per infectious disease. If Infectious disease clears patient will be discharged. 2. 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 3. Type 2 diabetes mellitus. 4. Hypertension. 5. Scleroderma for which patient is on hydroxy( ) and pilocarpine, which can be continued. 6. Osteoarthritis. 7. Hypertension. 8. Hypothyroidism. Regarding ( ) patient is on Prilosec at home. If her kidney function worsens again, maybe Prilosec can be discontinued at that time. The patient will be discharged today. DISCHARGE DIET: Cardiac and ADA 1800 calorie diet. Follow up with Dr. Zee Soto as an outpatient. Activity as tolerated. Patient will follow with Dr. Zee Soto in 3 to 7 days. Spent greater than 35 minutes in total discharge process.
[2017-02-10] MEDS ORDERED: ERGOCALCIFEROL 50,000 UNIT CAP PO SCH (09:00)
== END 2017-02-08 14:46 | disposition home health service (06) | DRG 638 ==
LOC: EC 22:22 → 4MS4W 02-06 01:26
PROVIDERS: ADMIT Hospitalist; ATTEND Hospitalist
DX: E11.622 Type 2 diabetes mellitus with other skin ulcer (principal); L03.116 Cellulitis of left lower limb; L97.322 Non-pressure chronic ulcer of left ankle with fat layer exposed; N17.9 Acute kidney failure, unspecified; E11.21 Type 2 diabetes mellitus with diabetic nephropathy; M34.9 Systemic sclerosis, unspecified; N18.3 Chronic kidney disease, stage 3 (moderate); M35.00 Sjogren syndrome, unspecified; E11.22 Type 2 diabetes mellitus with diabetic chronic kidney disease; E11.628 Type 2 diabetes mellitus with other skin complications; M06.9 Rheumatoid arthritis, unspecified; I12.9 Hypertensive chronic kidney disease with stage 1 through stage 4 chronic kidney disease, or unspecified chronic kidney disease; T50.1X5A Adverse effect of loop [high-ceiling] diuretics, initial encounter; T46.4X5A Adverse effect of angiotensin-converting-enzyme inhibitors, initial encounter; R19.7 Diarrhea, unspecified; E86.0 Dehydration; R32 Unspecified urinary incontinence; D63.1 Anemia in chronic kidney disease; M81.0 Age-related osteoporosis without current pathological fracture; E03.9 Hypothyroidism, unspecified; M19.90 Unspecified osteoarthritis, unspecified site; Z96.651 Presence of right artificial knee joint; Z96.643 Presence of artificial hip joint, bilateral; Z87.440 Personal history of urinary (tract) infections; Z88.1 Allergy status to other antibiotic agents; Z86.19 Personal history of other infectious and parasitic diseases; Z71.3 Dietary counseling and surveillance; Z82.49 Family history of ischemic heart disease and other diseases of the circulatory system; Z79.4 Long term (current) use of insulin; Z79.899 Other long term (current) drug therapy; Z96.661 Presence of right artificial ankle joint; Z79.2 Long term (current) use of antibiotics
CPT/HCPCS: 36415; 78315; 80048; 80053; 83036; 83605; 85025; 85027; 87040; 96360; 96361; 99285

== ENCOUNTER → 2017-03-05 | Outpatient (CLI) | payer MEDICARE, BC ==
[2017-03-05 14:21] LABS: CH 30.5; CHCM 30.9; HCT 34.9 % (34.0-46.0); HDW 2.55; HGB 10.7 gm/dL (11.4-16.0); Hypochromasia Slight; MCH 30.4 pg (25.0-35.0); MCHC 30.6 g/dL (31.0-37.0); MCV 99.5 fL (80.0-100.0); Macrocytosis Slight; Mean Platelet Volume 6.6; RBC 3.51 m/uL (3.80-5.40); RDW 15.1 % (11.5-15.5); WBC 8.6 k/uL (3.8-10.6)
[2017-03-05 14:22] LABS: Appearance,Urine Cloudy (Clear); Bacteria,Urine Rare /hpf; Bilirubin,Urine Negative (Negative); Glucose,Urine (UA) Negative (Negative); Ketones,Urine Negative (Negative); Leukocyte Esterase,Urine Moderate (Negative); Mucus,Urine Rare /hpf; Nitrite,Urine Negative (Negative); Particle Count 2391; Protein,Urine Trace (Negative); RBC,Urine 1 /hpf (0-5); Specific Gravity,Urine 1.017 (1.001-1.035); Squamous Epithelial Cell,Urine 5 /hpf (0-4); UA Billing (MACRO vs. MICRO) MICRO; Urobilinogen,Urine <2.0 mg/dL (<2.0); WBC,Urine 3 /hpf (0-5)
[2017-03-05 14:25] LABS: Magnesium 1.8 mg/dL (1.6-2.3); Phosphorous 3.7 mg/dL (2.5-4.5); Potassium 4.1 mmol/L (3.5-5.1); Uric Acid 6.8 mg/dL (3.7-7.4)
[2017-03-05 14:33] LABS: % Iron Saturation 10.3 % (20-50)
== END | disposition home or self-care (01) ==
LOC: LABWHC1 13:36
PROVIDERS: ATTEND Nurse Practitioner Family
DX: N17.9 Acute kidney failure, unspecified (principal); N25.81 Secondary hyperparathyroidism of renal origin; E83.52 Hypercalcemia; D64.2 Secondary sideroblastic anemia due to drugs and toxins; N39.0 Urinary tract infection, site not specified; M10.9 Gout, unspecified
CPT/HCPCS: 36415; 80048; 81001; 82306; 82728; 83540; 83550; 83735; 83970; 84100; 84550; 85027

== ENCOUNTER → 2017-04-09 | Outpatient (CLI) | payer MEDICARE, BC ==
[2017-04-09 15:45] LABS: Bilirubin, Delta 0.2 mg/dL (0.0-0.2); Calcium 9.5 mg/dL (8.4-10.2); Phosphorous 3.9 mg/dL (2.5-4.5); Potassium 4.6 mmol/L (3.5-5.1); Total Bilirubin 0.4 mg/dL (0.2-1.3); Total Protein 6.8 g/dL (6.3-8.2)
[2017-04-09 18:11] LABS: Hemoglobin A1C 5.4 % (4.2-6.1)
== END | disposition home or self-care (01) ==
LOC: LABWHC1 14:49
PROVIDERS: ATTEND Internal Medicine Interventional Cardiology
DX: E03.9 Hypothyroidism, unspecified (principal); E55.9 Vitamin D deficiency, unspecified; E11.65 Type 2 diabetes mellitus with hyperglycemia; E78.5 Hyperlipidemia, unspecified
CPT/HCPCS: 36415; 80053; 80061; 82248; 82306; 83036; 83970; 84100; 84443

== ENCOUNTER → 2017-04-24 | Outpatient (CLI) | payer MEDICARE, BC ==
--- NOTE | 2017-04-24 15:44 | BD ---
EXAMINATION TYPE: MG DEXA axial skeleton. DATE OF EXAM: 04/24/2017 COMPARISON: NONE CLINICAL HISTORY: 87-year-old female age-related osteoporosis Height: 60 IN Weight: 201 LBS FRAX RISK QUESTIONS: Alcohol (3 or more units per day): NO Family History (Parent hip fracture): NO Glucocorticoids (More than 3mos): NO (Ex: prednisone, prednisolone, methylprednisolone, dexamethasone, and hydrocortisone). History of Fracture in Adulthood: YES RT ANKLE AGE 86; Secondary Osteoporosis: 1. Type 1 Diabetes: NO 2. Hyperthyroidism: NO 3. Menopause before 45: AGE 51 4. Malnutrition: NO 5. Chronic liver disease: NO Rheumatoid Arthritis: YES Current Tobacco Use: NO RISK FACTORS HISTORY OF: Surgery to Hip(ARLENE): YES When: AGE 84 RT AND AGE 80 LT Active: MODERATE Diet low in dairy products/other sources of calcium: NO Postmenopausal woman: AGE 51 Lost more than 2 inches in height since high school: YES 5 " MEDICATIONS: Thyroid Medications: YES Which medication: Synthroid How Lon YEARS Osteoporosis Medications: NOT NOW Which medication: Prolia How Long: SINCE AGE 81 Additional Medications: PRAVASTATIN, PRILOSEC, SALAGEN, TYLENOL, VIT D2,ZANTAC, AQUACEL-AG, AUGMENTIN , VIT B, CLARITIN, CYCLOBENZAPRINE, GABAPENTIN, HYDROXYCHLOROQUINE, LEVEMIR SUBCUTANEOUS, LOTRISONE, MELATONIN, NORVASC, NOVOLOG EXAM MEASUREMENTS: Bone mineral densitometry was performed using the [employer] System. Bone mineral density as measured about the Lumbar spine is: ----- L1-L4(G/cm2): 1.206 T Score Values are as follows: ----- L2: -0.1 ----- L3: -0.4 ----- L4: 1.6 ----- L1-L4: 0.2 Bone mineral density BASELINE PT HAD ARLENE HIP REPLACEMENTS. RIGHT HIP AGE 84 AND LT HIP AGE 80. IMPRESSION: Normal bone mineral density as measured in the lumbar spine. Measurements not taken at the hips due t o prior surgery. Consider repeating this study in 5 years or sooner if there is some new clinical ind ication. NOTE: T-SCORE=SD OF THE YOUNG ADULT MEAN.
== END | disposition home or self-care (01) ==
LOC: RADBDWWP 13:08
PROVIDERS: ATTEND Internal Medicine Rheumatology
DX: M81.0 Age-related osteoporosis without current pathological fracture (principal)
CPT/HCPCS: 77080

== ENCOUNTER → 2017-05-07 | Outpatient (CLI) | payer MEDICARE, BC ==
[2017-05-07 11:17] VITALS: BP 139/65; PULSE 94; RESP 16; TEMP 97.8
== END ==
LOC: PROCWHC3 11:00
PROVIDERS: ATTEND Internal Medicine
DX: M81.0 Age-related osteoporosis without current pathological fracture (principal)
CPT/HCPCS: 96372; J0897

== ENCOUNTER 2018-08-14 13:10 | Emergency (ER) | payer MEDICARE, BC ==
[2018-08-14 13:16] VITALS: RESP 18; TEMP 97.4
--- NOTE | 2018-08-14 14:18 | ED ---
Wound/Laceration HPI - General Chief Complaint: Wound/Laceration Stated Complaint: cellulitis Time Seen by Provider: 08/14/18 13:54 Source: patient, RN notes reviewed Mode of arrival: ambulatory Limitations: no limitations - History of Present Illness Initial Comments: 88-year-old female presents emergency Department chief complaint of worsening leg infection. Patient states that she has been on Keflex for 2 weeks for cellulitis, multiple wounds and sores. She states somehow close was states she' s developed new blistering areas. She states that she's had redness. She does have chronic swelling of her lower extremities and which she normally has them wrapped. Patient has been evaluated by Dr. Thomas several times for her legs and has ruled out DVTs multiple times. Patient denies any chest pain or shortness breath no fevers no chills. - Related Data Home Medications Medication Instructions Recorded Confirmed Cyclobenzaprine [Flexeril] 10 mg PO HS 08/20/14 08/14/18 Ergocalciferol [Vitamin D2 50,000 unit PO Q30D 08/20/14 08/14/18 (DRISDOL)] Hydroxychloroquine Sulfate 200 mg PO BID-W/MEALS 08/20/14 08/14/18 [Plaquenil] Insulin Aspart [NovoLOG See Protocol SQ AC-TID 08/20/14 08/14/18 (formulary)] Levothyroxine Sodium [Synthroid] 100 mcg PO DAILY 08/20/14 08/14/18 Loratadine [Claritin] 10 mg PO DAILY 08/20/14 08/14/18 Pravastatin Sodium [Pravachol] 20 mg PO HS 08/20/14 08/14/18 amLODIPine [Norvasc] 5 mg PO DAILY 08/20/14 08/14/18 Omeprazole 20 mg PO AC-BRKFST 04/30/16 08/14/18 Ranitidine HCl [Zantac] 150 mg PO W/SUPPER 01/28/17 08/14/18 Cinacalcet [Sensipar] 30 mg PO FR 02/05/17 08/14/18 Cranberry Fruit Extract [Cranberry] 500 mg PO DAILY@1200 02/05/17 08/14/18 L.acidoph,Paracasei, B.lactis 1 cap PO DAILY@1200 02/05/17 08/14/18 [Probiotic] Magnesium Oxide [Mag-Ox] 400 mg PO DAILY 02/05/17 08/14/18 Pilocarpine [Salagen] 5 mg PO TID-W/MEALS 02/05/17 08/14/18 Acetaminophen Tab [Tylenol Tab] 1,000 mg PO HS 08/14/18 08/14/18 Acetaminophen Tab [Tylenol Tab] 500 mg PO QAM 08/14/18 08/14/18 B Complex-Vit C-Vit E-Zinc [Z-Bec] 1 tab PO HS 08/14/18 08/14/18 Cephalexin [Keflex] 500 mg PO Q8HR 08/14/18 08/14/18 Fluocinonide 0.05% [Fluocinonide] 1 applic TOPICAL DAILY 08/14/18 08/14/18 Furosemide [Lasix] 40 mg PO DAILY 08/14/18 08/14/18 Insulin Glargine,Hum.rec.anlog 18 unit SQ HS 08/14/18 08/14/18 [Lantus Solostar] L. Rhamnosus GG/Inulin [Culturelle 1 cap PO HS 08/14/18 08/14/18 Probiotics Capsule] Melatonin 5 mg PO HS 08/14/18 08/14/18 Nystatin 100,000 Unit/gm Powd 1 applic TOPICAL BID 08/14/18 08/14/18 [Mycostatin Powder] Ranitidine HCl [Zantac] 150 mg PO HS PRN 08/14/18 08/14/18 Wheat Dextrin [Benefiber] 1 pack PO BID 08/14/18 08/14/18 Previous Rx's Medication Instructions Recorded Clindamycin HCl 300 mg PO Q6HR #40 cap 08/14/18 Allergies Allergy/AdvReac Type Severity Reaction Status Date / Time ciprofloxacin [From Cipro] Allergy Unknown Verified 08/14/18 13:17 levofloxacin [From Levaquin] Allergy Rash/Hives Verified 08/14/18 13:16 Review of Systems ROS Statement: Those systems with pertinent positive or pertinent negative responses have been documented in the HPI. ROS Other: All systems not noted in ROS Statement are negative. Past Medical History Past Medical History: Diabetes Mellitus, Hypertension, Osteoarthritis (OA), Rheumatoid Arthritis (RA), Thyroid Disorder Additional Past Medical History / Comment(s): osteoporosis. sjogren's syndrome. HX UTI's History of Any Multi-Drug Resistant Organisms: None Reported Past Surgical History: Back Surgery, Joint Replacement, Orthopedic Surgery Additional Past Surgical History / Comment(s): bilateral hip replacements. right knee replacement. right ankle. Bilateral carpal tunnel surgery Past Anesthesia/Blood Transfusion Reactions: No Reported Reaction Past Psychological History: No Psychological Hx Reported Smoking Status: Never smoker Past Alcohol Use History: None Reported Past Drug Use History: None Reported - Past Family History Mother Family Medical History: Coronary Artery Disease (CAD) Father Family Medical History: Blood Disorder, Vascular Disorder Additional Family Medical History / Comment(s): from [facility] General Exam Limitations: no limitations General appearance: alert, in no apparent distress Head exam: Present: atraumatic, normocephalic, normal inspection Respiratory exam: Present: normal lung sounds bilaterally. Absent: respiratory distress, wheezes, rales, rhonchi, stridor Cardiovascular Exam: Present: regular rate, normal rhythm, normal heart sounds. Absent: systolic murmur, diastolic murmur, rubs, gallop, clicks Extremities exam: Present: other (Bilateral lower extremity swelling, neurovascular intact with equal pedal pulses there is mild erythema to left lower extremity and right there is some brawny discoloration noted to the right there is no open wound to the right posterior calf region) Course Vital Signs 08/14/18 08/14/18 13:13 15:23 Temperature 97.4 F L Pulse Rate 96 87 Respiratory 18 18 Rate Blood Pressure 146/77 146/72 O2 Sat by Pulse 98 96 Oximetry Medical Decision Making - Medical Decision Making 88-year-old female presented for lower leg redness and sore on right leg. Patient lab work which is unremarkable. Patient is currently taking Keflex has been on no other antibiotics. I did offer admission to the patient along with daughter in the room. I did explain that we could start her on vancomycin with close follow-up. Patient follow-up PCP in 2 days and see the wound center and 6 days. Patient return for any worsening symptoms. - Lab Data Result diagrams: 08/14/18 14:45 08/14/18 14:45 Lab Results 08/14/18 08/14/18 08/14/18 Range/Units 14:45 14:45 14:45 WBC 7.6 (3.8-10.6) k/uL RBC 3.52 L (3.80-5.40) m/uL Hgb 10.9 L (11.4-16.0) gm/dL Hct 33.9 L (34.0-46.0) % MCV 96.4 (80.0-100.0) fL MCH 30.9 (25.0-35.0) pg MCHC 32.1 (31.0-37.0) g/dL RDW 14.4 (11.5-15.5) % Plt Count 360 (150-450) k/uL Neutrophils % 73 % Lymphocytes % 16 % Monocytes % 7 % Eosinophils % 1 % Basophils % 0 % Neutrophils # 5.5 (1.3-7.7) k/uL Lymphocytes # 1.2 (1.0-4.8) k/uL Monocytes # 0.6 (0-1.0) k/uL Eosinophils # 0.1 (0-0.7) k/uL Basophils # 0.0 (0-0.2) k/uL PT (9.0-12.0) sec INR (<1.2) APTT (22.0-30.0) sec Sodium 139 (137-145) mmol/L Potassium 4.8 (3.5-5.1) mmol/L Chloride 107 (98-107) mmol/L Carbon Dioxide 24 (22-30) mmol/L Anion Gap 8 mmol/L BUN 47 H (7-17) mg/dL Creatinine 1.91 H (0.52-1.04) mg/dL Est GFR (CKD-EPI)AfAm 27 (>60 ml/min/1.73 sqM) Est GFR (CKD-EPI)NonAf 23 (>60 ml/min/1.73 sqM) Glucose 63 L (74-99) mg/dL Plasma Lactic Acid Jalil 1.1 (0.7-2.0) mmol/L Calcium 9.8 (8.4-10.2) mg/dL 08/14/18 Range/Units 14:45 WBC (3.8-10.6) k/uL RBC (3.80-5.40) m/uL Hgb (11.4-16.0) gm/dL Hct (34.0-46.0) % MCV (80.0-100.0) fL MCH (25.0-35.0) pg MCHC (31.0-37.0) g/dL RDW (11.5-15.5) % Plt Count (150-450) k/uL Neutrophils % % Lymphocytes % % Monocytes % % Eosinophils % % Basophils % % Neutrophils # (1.3-7.7) k/uL Lymphocytes # (1.0-4.8) k/uL Monocytes # (0-1.0) k/uL Eosinophils # (0-0.7) k/uL Basophils # (0-0.2) k/uL PT 10.0 (9.0-12.0) sec INR 1.0 (<1.2) APTT 23.8 (22.0-30.0) sec Sodium (137-145) mmol/L Potassium (3.5-5.1) mmol/L Chloride (98-107) mmol/L Carbon Dioxide (22-30) mmol/L Anion Gap mmol/L BUN (7-17) mg/dL Creatinine (0.52-1.04) mg/dL Est GFR (CKD-EPI)AfAm (>60 ml/min/1.73 sqM) Est GFR (CKD-EPI)NonAf (>60 ml/min/1.73 sqM) Glucose (74-99) mg/dL Plasma Lactic Acid Jalil (0.7-2.0) mmol/L Calcium (8.4-10.2) mg/dL Disposition Clinical Impression: Cellulitis of leg, right Disposition: HOME SELF-CARE Condition: Stable Instructions: Cellulitis (ED) Additional Instructions: Please return to the Emergency Department if symptoms worsen or any other concerns. Prescriptions: Clindamycin HCl 300 mg PO Q6HR #40 cap Is patient prescribed a controlled substance at d/c from ED?: No Referrals: Zee Soto MD [Primary Care Provider] - 1-2 days Time of Disposition: 16:18
[2018-08-14 15:09] LABS: Basophils % (A) 0 %; Eosinophils # (A) 0.1 k/uL (0-0.7); Eosinophils % (A) 1 %; HCT 33.9 % (34.0-46.0); HGB 10.9 gm/dL (11.4-16.0); Lymphocytes # (A) 1.2 k/uL (1.0-4.8); Lymphocytes % (A) 16 %; MCH 30.9 pg (25.0-35.0); MCHC 32.1 g/dL (31.0-37.0); MCV 96.4 fL (80.0-100.0); Mean Platelet Volume 6.8; Monocytes # (A) 0.6 k/uL (0-1.0); Monocytes % (A) 7 %; Neutrophils # (A) 5.5 k/uL (1.3-7.7); Neutrophils % (A) 73 %; Platelet Count 360 k/uL (150-450); RBC 3.52 m/uL (3.80-5.40); RDW 14.4 % (11.5-15.5); WBC 7.6 k/uL (3.8-10.6)
[2018-08-14 15:16] LABS: Partial Thromboplastin Time 23.8 sec (22.0-30.0)
[2018-08-14 15:24] VITALS: BP 146/72; PULSE 87
[2018-08-14 15:25] LABS: Calcium 9.8 mg/dL (8.4-10.2); Potassium 4.8 mmol/L (3.5-5.1)
== END 2018-08-14 16:31 | disposition home or self-care (01) ==
LOC: EC 13:10
DX: L03.115 Cellulitis of right lower limb (principal); M79.89 Other specified soft tissue disorders; E11.9 Type 2 diabetes mellitus without complications; I10 Essential (primary) hypertension; M19.90 Unspecified osteoarthritis, unspecified site; E07.9 Disorder of thyroid, unspecified; Z96.643 Presence of artificial hip joint, bilateral; Z98.890 Other specified postprocedural states; Z79.4 Long term (current) use of insulin; Z79.52 Long term (current) use of systemic steroids; Z79.899 Other long term (current) drug therapy; Z88.1 Allergy status to other antibiotic agents
CPT/HCPCS: 36415; 80048; 83605; 85025; 85610; 85730; 87040; 99283

== ENCOUNTER → 2019-02-25 | Outpatient (CLI) | payer MEDICARE, BC ==
--- NOTE | 2019-02-25 15:46 | US ---
EXAMINATION TYPE: US venous doppler duplex LE DATE OF EXAM: 02/25/2019 3:35 PM COMPARISON: NONE CLINICAL HISTORY: T79.2XXA. hx dvt x 20 years ago, not on blood thinners, swelling SIDE PERFORMED: bilateral TECHNIQUE: The lower extremity deep venous system is examined utilizing real time linear array sonog shantel with graded compression, doppler sonography and color-flow sonography. VESSELS IMAGED: External Iliac Vein (EIV) Common Femoral Vein Deep Femoral Vein Greater Saphenous Vein * Femoral Vein Popliteal Vein Small Saphenous Vein * Proximal Calf Veins (* superficial vessels) Grayscale, color doppler, spectral doppler imaging performed of the deep veins of the lower extremiti es. There is normal flow, compressibility, vascular waveforms. Right Leg: Negative for DVT Left Leg: Negative for DVT IMPRESSION: No sonographic evidence of deep venous thrombosis within either visualized lower extremi ty.
== END | disposition home or self-care (01) ==
LOC: RADUSWWP 13:58
PROVIDERS: ATTEND Nurse Practitioner Family
DX: T79.2XXA Traumatic secondary and recurrent hemorrhage and seroma, initial encounter (principal); E11.622 Type 2 diabetes mellitus with other skin ulcer
CPT/HCPCS: 93922; 93970

== ENCOUNTER → 2019-03-24 | Outpatient (CLI) | payer MEDICARE, BC ==
[2019-03-24 16:23] LABS: Basophils % (A) 0 %; Eosinophils # (A) 0.2 k/uL (0-0.7); Eosinophils % (A) 3 %; HCT 33.3 % (34.0-46.0); HGB 10.5 gm/dL (11.4-16.0); Hypochromasia Moderate; Lymphocytes # (A) 0.8 k/uL (1.0-4.8); Lymphocytes % (A) 17 %; MCH 30.1 pg (25.0-35.0); MCHC 31.5 g/dL (31.0-37.0); MCV 95.3 fL (80.0-100.0); Monocytes # (A) 0.3 k/uL (0-1.0); Monocytes % (A) 7 %; Neutrophils # (A) 3.3 k/uL (1.3-7.7); Neutrophils % (A) 70 %; Platelet Count 339 k/uL (150-450); RBC 3.49 m/uL (3.80-5.40); RDW 15.7 % (11.5-15.5); WBC 4.8 k/uL (3.8-10.6)
[2019-03-24 16:42] LABS: Appearance,Urine Clear (Clear); Bilirubin,Urine Negative (Negative); Blood,Urine Negative (Negative); Color,Urine Light Yellow; Glucose,Urine (UA) Negative (Negative); Ketones,Urine Negative (Negative); Leukocyte Esterase,Urine Negative (Negative); Nitrite,Urine Negative (Negative); Protein,Urine Negative (Negative); Specific Gravity,Urine 1.013 (1.001-1.035); Urobilinogen,Urine <2.0 mg/dL (<2.0)
[2019-03-25 00:20] LABS: Parathyroid Hormone Intact 91.6 pg/mL (14.0-72.0)
[2019-03-25 00:46] LABS: Total Protein,Urine Random 4.7 mg/dL (0.0-13.5)
[2019-03-25 00:47] LABS: Creatinine,Urine Random 40.6 mg/dL
[2019-03-25 01:35] LABS: Iron Saturation 13.07 (12.00-45.00)
[2019-03-25 01:43] LABS: Vitamin D 25 Hydroxy 33.4 ng/mL (30.0-100.0)
[2019-03-25 01:45] LABS: African American GFR (CKD) 30.7 (60.0-200.0); Albumin 3.9 g/dL (3.80-4.90); Anion Gap 10.5 mmol/L (4.00-12.00); BUN/Creat Ratio 27.65 Ratio (12.00-20.00); Calcium 9.6 mg/dL (8.7-10.3); Carbon Dioxide 26.5 mmol/L (21.6-31.8); Magnesium 1.8 mg/dL (1.5-2.4); Phosphorus 3.9 mg/dL (2.4-5.1); Potassium 4.3 mmol/L (3.5-5.5); Uric Acid 5.7 mg/dL (2.9-7.7)
== END | disposition home or self-care (01) ==
LOC: LABWHC1 15:28
PROVIDERS: ATTEND Internal Medicine Nephrology
DX: N18.4 Chronic kidney disease, stage 4 (severe) (principal); N25.81 Secondary hyperparathyroidism of renal origin; D50.9 Iron deficiency anemia, unspecified; E55.9 Vitamin D deficiency, unspecified; M10.9 Gout, unspecified; N39.0 Urinary tract infection, site not specified
CPT/HCPCS: 36415; 80048; 81003; 82040; 82306; 82570; 82728; 83540; 83550; 83735; 83970; 84100; 84156; 84550; 85025

== ENCOUNTER → 2019-04-28 | Outpatient (CLI) | payer MEDICARE, BC ==
--- NOTE | 2019-04-28 16:34 | US ---
EXAMINATION TYPE: US kidneys/renal and bladder DATE OF EXAM: 04/28/2019 COMPARISON: NONE CLINICAL HISTORY: N18.4 CKD. EXAM MEASUREMENTS: Right Kidney: 8.3 x 4.0 x 4.6 cm Left Kidney: 9.8 x 4.1 x 3.8 cm Right Kidney: Measuring small. No hydronephrosis. No cystic or solid mass visualized Left Kidney: No hydronephrosis or masses seen Bladder: wnl as visualized Bilateral Jets seen: Right jet only visualized Cortical medullary differentiation is maintained bilaterally. Cortical thinning suspected on the left . IMPRESSION: Renal sizes as described. Cortical thinning suspected on the left.
== END | disposition home or self-care (01) ==
LOC: RADUSWWP 13:46
PROVIDERS: ATTEND Internal Medicine Nephrology
DX: N18.4 Chronic kidney disease, stage 4 (severe) (principal)
CPT/HCPCS: 76770

== ENCOUNTER → 2019-05-05 | Outpatient (CLI) | payer MEDICARE, BC ==
[2019-05-06 01:12] LABS: T4, Free (Free Thyroxine) 1.3 ng/dL (0.80-1.80)
[2019-05-06 03:04] LABS: Hemoglobin A1C 6.1 % (4.0-6.0)
== END | disposition home or self-care (01) ==
LOC: LABWHC1 16:54
DX: E78.2 Mixed hyperlipidemia (principal); E03.9 Hypothyroidism, unspecified; E11.9 Type 2 diabetes mellitus without complications
CPT/HCPCS: 36415; 80061; 83036; 84439; 84443

== ENCOUNTER 2019-09-17 02:47 | Inpatient (IN) | payer MEDICARE, BC ==
[2019-09-17] MEDS ORDERED: ACETAMINOPHEN TAB 325 MG TAB PO PRN (03:05)
--- NOTE | 2019-09-17 03:05 | ED ---
Dizziness HPI - General Chief Complaint: Dizziness Stated Complaint: Dizziness Time Seen by Provider: 09/17/19 02:54 Source: patient, EMS Mode of arrival: EMS Limitations: no limitations - History of Present Illness Initial Comments: This patient is an 89-year-old woman who comes as a transfer from [facility] to have admission for neurology consultation. The patient had gone there tonight with complaint that she was feeling dizzy. She states that the symptoms had started just before lunchtime around noon. She states that she started feeling dizzy, like she was unsteady. She also felt that her right hand was just not quite right in that her vision also was not quite right elbow she is having difficulty explaining exactly what was different. She had gone to the other hospital for workup including computed tomography scan which was read as showing some atrophy but negative for acute stroke. She had labs, mainly revealing a mildly elevated troponin at 0.24 and also some white blood cells in her urine consistent with urinary tract infection. Because it was not neurology coverage at the other hospital she was transferred here for admission with neurology consultation. The patient states she is feeling more or less similar to a she had felt earlier in the day. MD Complaint: dizziness Onset/Timin -: hour(s) Timing: sudden onset Description: off-balance History of Trauma: No Severity: moderate Improves With: nothing Worsens With: nothing Associated Symptoms: ataxia - Related Data Home Medications Medication Instructions Recorded Confirmed Cyclobenzaprine [Flexeril] 10 mg PO HS 08/20/14 04/14/19 Ergocalciferol [Vitamin D2 50,000 unit PO Q30D 08/20/14 04/14/19 (DRISDOL)] Hydroxychloroquine Sulfate 200 mg PO BID-W/MEALS 08/20/14 04/14/19 [Plaquenil] INSULIN ASPART (NovoLOG) [NovoLOG See Protocol SQ AC-TID 08/20/14 04/14/19 (formulary)] Levothyroxine Sodium [Synthroid] 100 mcg PO DAILY 08/20/14 04/14/19 Loratadine [Claritin] 10 mg PO DAILY 08/20/14 04/14/19 Pravastatin Sodium [Pravachol] 20 mg PO HS 08/20/14 04/14/19 Omeprazole 20 mg PO AC-BRKFST 04/30/16 04/14/19 Ranitidine HCl [Zantac] 150 mg PO W/SUPPER 01/28/17 04/14/19 Cinacalcet [Sensipar] 30 mg PO FR 02/05/17 04/14/19 Cranberry Fruit Extract [Cranberry] 500 mg PO BID 02/05/17 04/14/19 L.acidoph,Paracasei, B.lactis 1 cap PO BID 02/05/17 04/14/19 [Probiotic] Magnesium Oxide [Mag-Ox] 400 mg PO DAILY 02/05/17 04/14/19 Pilocarpine [Salagen] 5 mg PO TID-W/MEALS 02/05/17 04/14/19 Acetaminophen Tab [Tylenol Tab] 500 mg PO BID 08/14/18 04/14/19 B Complex-Vit C-Vit E-Zinc [Z-Bec] 1 tab PO HS 08/14/18 04/14/19 Insulin Glargine,Hum.rec.anlog 20 unit SQ HS 08/14/18 04/14/19 [Lantus Solostar] L. Rhamnosus GG/Inulin [Culturelle 1 cap PO HS 08/14/18 04/14/19 Probiotics Capsule] Ranitidine HCl [Zantac] 150 mg PO HS PRN 08/14/18 04/14/19 Wheat Dextrin [Benefiber] 1 pack PO BID 08/14/18 04/14/19 Allopurinol [Zyloprim] 100 mg PO DAILY 04/07/19 04/14/19 Carvedilol [Coreg] 12.5 mg PO DAILY 04/07/19 04/14/19 Clotrimazole/Betamethasone Dip 1 applic TOPICAL DAILY 04/07/19 04/14/19 [Lotrisone Cream] Gabapentin [Neurontin] 100 mg PO DAILY 04/07/19 04/14/19 Hydroxychloroquine Sulfate 200 mg PO BID 04/07/19 04/14/19 [Plaquenil] Sevelamer [Renvela] 800 mg PO DAILY 04/07/19 04/14/19 Torsemide [Demadex] 5 mg PO TID 04/07/19 04/14/19 Wheat Dextrin [Benefiber] 1 each PO DAILY 04/07/19 04/14/19 Previous Rx's Medication Instructions Recorded Triamcinolone 0.025% Cream 1 applic TOPICAL DAILY 14 Days #80 05/05/19 [Kenalog 0.025% Cream] gm Allergies Allergy/AdvReac Type Severity Reaction Status Date / Time ciprofloxacin [From Cipro] Allergy Unknown Verified 04/14/19 13:44 levofloxacin [From Levaquin] Allergy Rash/Hives Verified 04/14/19 13:44 Review of Systems ROS Statement: Those systems with pertinent positive or pertinent negative responses have been documented in the HPI. ROS Other: All systems not noted in ROS Statement are negative. Constitutional: Reports: weakness (Generalized). Denies: fever Eyes: Reports: vision change. Denies: eye pain Respiratory: Denies: cough, dyspnea Cardiovascular: Denies: chest pain, edema, syncope Gastrointestinal: Denies: abdominal pain, vomiting, diarrhea Genitourinary: Denies: dysuria, hematuria Musculoskeletal: Denies: back pain Skin: Denies: rash Neurological: Denies: headache, weakness, numbness, paresthesias Past Medical History Past Medical History: Diabetes Mellitus, Hypertension, Osteoarthritis (OA), Rheumatoid Arthritis (RA), Skin Disorder, Thyroid Disorder Additional Past Medical History / Comment(s): osteoporosis. sjogren's syndrome. HX UTI's History of Any Multi-Drug Resistant Organisms: None Reported Past Surgical History: Back Surgery, Joint Replacement, Orthopedic Surgery Additional Past Surgical History / Comment(s): bilateral hip replacements. right knee replacement. right ankle. Bilateral carpal tunnel surgery Past Anesthesia/Blood Transfusion Reactions: No Reported Reaction Past Psychological History: No Psychological Hx Reported Smoking Status: Never smoker - Past Family History Mother Family Medical History: Coronary Artery Disease (CAD) Father Family Medical History: Blood Disorder, Vascular Disorder Additional Family Medical History / Comment(s): from [facility] General Exam General appearance: alert, in no apparent distress Head exam: Present: atraumatic, normocephalic Eye exam: Present: normal appearance, PERRL, EOMI. Absent: scleral icterus, conjunctival injection ENT exam: Present: normal oropharynx Neck exam: Present: normal inspection, full ROM Respiratory exam: Present: normal lung sounds bilaterally. Absent: respiratory distress, wheezes, rales, rhonchi, stridor Cardiovascular Exam: Present: regular rate, normal rhythm, normal heart sounds. Absent: systolic murmur, diastolic murmur, rubs, gallop GI/Abdominal exam: Present: soft. Absent: distended, tenderness, guarding Extremities exam: Present: normal inspection, normal capillary refill. Absent: pedal edema, calf tenderness Back exam: Present: normal inspection. Absent: CVA tenderness (R), CVA tenderness (L) Neurological exam: Present: alert, oriented X3, CN II-XII intact. Absent: motor sensory deficit Skin exam: Present: warm, dry, intact, normal color. Absent: rash Course Vital Signs 09/17/19 02:49 Temperature 97.9 F Pulse Rate 92 Respiratory 18 Rate Blood Pressure 173/85 O2 Sat by Pulse 98 Oximetry EKG Findings - EKG Results: EKG: interpreted by ERMD, sinus rhythm, normal axis, normal ST/T - Blocks, [place], Hypertrophy, ST Abn: AV and intraventricular conduction: right bundle branch block (fixed/intermitte nt, complete/incomplete) Disposition Clinical Impression: Dizziness Disposition: ADMITTED IP TO THIS [facility] Condition: Fair Instructions (If sedation given, give patient instructions): Dizziness (ED) Referrals: Zee Soto MD [Primary Care Provider] - 1-2 days
[2019-09-17 03:33] LABS: Glucose,Whole Blood 135 mg/dL (75-99)
[2019-09-17] MEDS ORDERED: FAMOTIDINE 20 MG TAB PO SCH (09:00)
[2019-09-17 10:42] LABS: Basophils % (A) 0 %; Eosinophils # (A) 0.1 k/uL (0-0.7); Eosinophils % (A) 2 %; HCT 34.5 % (34.0-46.0); HGB 11.4 gm/dL (11.4-16.0); Lymphocytes # (A) 1.3 k/uL (1.0-4.8); Lymphocytes % (A) 25 %; MCH 32.9 pg (25.0-35.0); MCHC 32.9 g/dL (31.0-37.0); Mean Platelet Volume 6.4; Monocytes # (A) 0.3 k/uL (0-1.0); Monocytes % (A) 7 %; Neutrophils # (A) 3.3 k/uL (1.3-7.7); Neutrophils % (A) 65 %; Platelet Count 233 k/uL (150-450); RBC 3.45 m/uL (3.80-5.40); RDW 13.5 % (11.5-15.5); WBC 5.1 k/uL (3.8-10.6)
[2019-09-17 10:44] LABS: Albumin 3.3 g/dL (3.5-5.0); Calcium 9.2 mg/dL (8.4-10.2); Potassium 4.2 mmol/L (3.5-5.1); Total Bilirubin 0.4 mg/dL (0.2-1.3); Total Protein 5.7 g/dL (6.3-8.2)
[2019-09-17] MEDS: SODIUM CHLORIDE 0.9% 1,000 ML IV SCH (10:50)
[2019-09-17] MEDS: DOCUSATE 100 MG CAP PO SCH ×3 (10:51→21:41)
[2019-09-17 12:26] LABS: Glucose,Whole Blood 205 mg/dL (75-99)
[2019-09-17] MEDS: INSULIN ASPART (NovoLOG) 100 UNIT/ML VIAL SQ SCH ×3 (13:23→21:43)
[2019-09-17] MEDS ORDERED: CYCLOBENZAPRINE 10 MG TAB PO PRN (13:59)
[2019-09-17] MEDS ORDERED: FAMOTIDINE 20 MG TAB PO PRN (13:59)
--- NOTE | 2019-09-17 14:17 | P.HPIM ---
History of Present Illness 89-year-old pleasant female was sent in from [facility] because of multiple neurological complaints. Patient presented there with dizziness which is lightheadedness. EKGs only significant for the right bundle-branch block but didn't show any other significant abnormality that can Explain her dizziness. Patient is not hypotensive orthostatic vitals are within normal limits. Patient has other neurological symptoms as well because of which the patient was sent in here patient the gait was unstable and there was a questionable history of slurred speech although she doesn't appear to have any significant focal weaknes s patient was already evaluated with neurology and she is undergoing MRI of the head clinically doesn't appear to have a CVA or TIA. Patient has elevation of troponins which are mild and stable secondary to possible chronic kidney disease her creatinine at the other hospital is around 2 now around 1.7 her baseline creatinine appears to be around that patient does say she has history of congestive heart failure although do not have any echocardiogram available will get the medical records from the current hospital and echocardiogram will be obtained here. Patient doesn't have any chest pain EKG did not show any acute ST-T wave changes patient had stable and constant elevation of troponins of 0.19 and 0.18. Patient denied any symptoms of UTI including dysuria suprapubic pain increased urinary frequency any other abdominal pain denied any fever doesn't have any leukocytosis urine is abnormal received a dose of Rocephin. Patient has a symptom any bacteria will not require any more antibiotics at this time. Patient is on Demadex which will be continued patient clinically is not in heart failure at this time. Patient is complaining of numbness in the tips of the fingers which she is secondary to neuropathy rather than a CVA or TIA Review of Systems REVIEW OF SYSTEMS: CONSTITUTIONAL: No fever, no malaise, no fatigue. HEENT: No recent visual problems or hearing problems. Denied any sore throat. CARDIOVASCULAR: No chest pain, orthopnea, PND, no palpitations, no syncope. PULMONARY: No shortness of breath, no cough, no hemoptysis. GASTROINTESTINAL: No diarrhea, no nausea, no vomiting, no abdominal pain. NEUROLOGICAL: As mentioned in HPI HEMATOLOGICAL: Denies any bleeding or petechiae. GENITOURINARY: Denies any burning micturition, frequency, or urgency. MUSCULOSKELETAL/RHEUMATOLOGICAL: Denies any joint pain, swelling, or any muscle pain. ENDOCRINE: Denies any polyuria or polydipsia. The rest of the 14-point review of systems is negative. Past Medical History Past Medical History: Diabetes Mellitus, Hypertension, Osteoarthritis (OA), Rheumatoid Arthritis (RA), Skin Disorder, Thyroid Disorder Additional Past Medical History / Comment(s): osteoporosis. sjogren's syndrome. HX UTI's History of Any Multi-Drug Resistant Organisms: None Reported Past Surgical History: Back Surgery, Joint Replacement, Orthopedic Surgery Additional Past Surgical History / Comment(s): bilateral hip replacements. right knee replacement. right ankle. Bilateral carpal tunnel surgery Past Anesthesia/Blood Transfusion Reactions: No Reported Reaction Past Psychological History: No Psychological Hx Reported Smoking Status: Never smoker - Past Family History Mother Family Medical History: Coronary Artery Disease (CAD) Additional Family Medical History / Comment(s): Mother of CHF at the age of 79yrs. Father Family Medical History: Blood Disorder, Vascular Disorder Additional Family Medical History / Comment(s): from anuersym Medications and Allergies Home Medications Medication Instructions Recorded Confirmed Type Cyclobenzaprine [Flexeril] 10 mg PO HS 08/20/14 09/17/19 History Ergocalciferol [Vitamin D2 50,000 unit PO Q30D 08/20/14 09/17/19 History (DRISDOL)] Levothyroxine Sodium [Synthroid] 100 mcg PO DAILY 08/20/14 09/17/19 History Loratadine [Claritin] 10 mg PO DAILY 08/20/14 09/17/19 History Pravastatin Sodium [Pravachol] 20 mg PO HS 08/20/14 09/17/19 History Omeprazole 20 mg PO AC-BRKFST 04/30/16 09/17/19 History Ranitidine HCl [Zantac] 150 mg PO W/SUPPER 01/28/17 09/17/19 History Cinacalcet [Sensipar] 30 mg PO FR 02/05/17 09/17/19 History Cranberry Fruit Extract [Cranberry] 500 mg PO BID 02/05/17 09/17/19 History L.acidoph,Paracasei, B.lactis 1 cap PO DAILY@1200 02/05/17 09/17/19 History [Probiotic] Magnesium Oxide [Mag-Ox] 400 mg PO DAILY 02/05/17 09/17/19 History Pilocarpine [Salagen] 5 mg PO TID-W/MEALS 02/05/17 09/17/19 History Acetaminophen Tab [Tylenol Tab] 500 mg PO BID 08/14/18 09/17/19 History B Complex-Vit C-Vit E-Zinc [Z-Bec] 1 tab PO DAILY 08/14/18 09/17/19 History Insulin Glargine,Hum.rec.anlog 20 unit SQ HS 08/14/18 09/17/19 History [Lantus Solostar] L. Rhamnosus GG/Inulin [Culturelle 1 cap PO HS 08/14/18 09/17/19 History Probiotics Capsule] Ranitidine HCl [Zantac] 150 mg PO HS PRN 08/14/18 09/17/19 History Wheat Dextrin [Benefiber] 1 pack PO BID 08/14/18 09/17/19 History Allopurinol [Zyloprim] 100 mg PO DAILY 04/07/19 09/17/19 History Carvedilol [Coreg] 12.5 mg PO DAILY 04/07/19 09/17/19 History Clotrimazole/Betamethasone Dip 1 applic TOPICAL DAILY 04/07/19 09/17/19 History [Lotrisone Cream] Gabapentin [Neurontin] 100 mg PO HS 04/07/19 09/17/19 History Hydroxychloroquine Sulfate 200 mg PO BID-W/MEALS 04/07/19 09/17/19 History [Plaquenil] Sevelamer [Renvela] 800 mg PO DAILY@1200 04/07/19 09/17/19 History Torsemide [Demadex] 5 mg PO TID 04/07/19 09/17/19 History Acetaminophen/Diphenhydramine 1 tab PO HS 09/17/19 09/17/19 History [Tylenol PM 500-25mg] Insulin Aspart [NovoLOG Flexpen] See Protocol SQ ACHS 09/17/19 09/17/19 History Nystatin 1 applic TOPICAL BID 09/17/19 09/17/19 History Potassium Chloride [K-Tab ER] 10 meq PO DAILY 09/17/19 09/17/19 History Allergies Allergy/AdvReac Type Severity Reaction Status Date / Time ciprofloxacin [From Cipro] Allergy Unknown Verified 09/17/19 07:12 levofloxacin [From Levaquin] Allergy Rash/Hives Verified 09/17/19 07:12 Physical Exam Vitals: Vital Signs Temp Pulse Pulse Resp BP BP Pulse Ox 09/17/19 12:00 97.5 F L 91 20 185/61 100 09/17/19 10:15 97.7 F 87 20 160/76 96 09/17/19 07:30 91 15 161/90 97 09/17/19 05:07 88 18 173/82 96 09/17/19 04:30 89 12 161/88 95 09/17/19 04:00 170/97 09/17/19 03:30 90 11 L 176/94 94 L 09/17/19 03:00 91 14 173/85 96 09/17/19 02:51 96 09/17/19 02:49 97.9 F 92 18 173/85 98 Intake and Output 09/16/19 09/17/19 09/17/19 22:59 06:59 14:59 Intake Total 240 Balance 240 Intake: Oral 240 Other: Weight 81.647 kg 81.647 kg PHYSICAL EXAMINATION: GENERAL: The patient is alert and oriented x3, not in any acute distress. Elderly frail female. HEENT: Pupils are round and equally reacting to light. EOMI. No scleral icterus. No conjunctival pallor. Normocephalic, atraumatic. No pharyngeal erythema. No thyromegaly. CARDIOVASCULAR: S1 and S2 present. No murmurs, rubs, or gallops. PULMONARY: Chest is clear to auscultation, no wheezing or crackles. ABDOMEN: Soft, nontender, nondistended, normoactive bowel sounds. No palpable organomegaly. MUSCULOSKELETAL: No joint swelling or deformity. EXTREMITIES: No cyanosis, clubbing, or pedal edema. NEUROLOGICAL: Gross neurological examination did not reveal any focal deficits. SKIN: No rashes. Results CBC & Chem 7: 09/17/19 06:06 09/17/19 06:06 Labs: Abnormal Lab Results - Last 24 Hours (Table) 09/17/19 09/17/19 09/17/19 Range/Units 03:31 06:01 06:06 RBC 3.45 L (3.80-5.40) m/uL BUN (7-17) mg/dL Creatinine (0.52-1.04) mg/dL Glucose (74-99) mg/dL POC Glucose (mg/dL) 135 H (75-99) mg/dL Troponin I 0.197 H* (0.000-0.034) ng/mL Total Protein (6.3-8.2) g/dL Albumin (3.5-5.0) g/dL 09/17/19 09/17/19 09/17/19 Range/Units 06:06 11:55 12:10 RBC (3.80-5.40) m/uL BUN 35 H (7-17) mg/dL Creatinine 1.41 H (0.52-1.04) mg/dL Glucose 148 H (74-99) mg/dL POC Glucose (mg/dL) 205 H (75-99) mg/dL Troponin I 0.181 H* (0.000-0.034) ng/mL Total Protein 5.7 L (6.3-8.2) g/dL Albumin 3.3 L (3.5-5.0) g/dL Thrombosis Risk Factor Assmnt - Choose All That Apply Any of the Below Risk Factors Present?: Yes Each Factor Represents 1 point: Obesity (BMI >25) Other Risk Factors: Yes Each Risk Factor Represents 3 Points: Age 75 years or older Other congenital or acquired thrombophilia - If yes, enter type in comment: No Thrombosis Risk Factor Assessment Total Risk Factor Score: 4 Thrombosis Risk Factor Assessment Level: Moderate Risk Assessment and Plan Plan: -Questionable slurred speech weakness: Symptoms are not consistent with CVA TIA neurology valid the patient patient will undergo MRI of the head to rule out any such possibility. -dizziness etiology is not clear at may be related to polypharmacy patient doesn't appear to be dehydrated or in heart failure patient does have elevated troponin but not from acute myocardial infarction, will obtain echocardiogram which shows any significant wall motion abnormalities. then cardiology probably will need to be consulted at the time. Echocardiogram will help me regarding valvular problems that can explain her dizziness. No rhythm abnormalities at this time. 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
[2019-09-17] MEDS ORDERED: CARVEDILOL 12.5 MG TAB PO STA (14:27)
--- NOTE | 2019-09-17 15:23 | MR ---
EXAMINATION TYPE: MR brain wo con DATE OF EXAM: 09/17/2019 COMPARISON: 09/17/2019 CT brain HISTORY: DIZZINESS, SLURRED SPEECH CONTRAST: Performed utilizing 0 mL intravenous Gadavist gadolinium contrast. TECHNIQUE: Multiplanar, multiecho imaging on a 3.0 Phoebe magnet is performed through the brain. Stud y is performed within 24 hours of arrival to the hospital. Fast protocol was utilized. The craniovertebral junction is normal. The pituitary is normal. Diffusion-weighted imaging is performed. No abnormal hyperintensity is present to suggest an acute i ntracranial infarct or acute ischemic change. There are multiple scattered punctate areas of hyperintensity on T2 and Inversion Recovery weighted s equences which are non-specific but can be related to microvascular ischemic changes. Ventricles and sulci are appropriate for the patient age. IMPRESSIONS: 1. No suspicious changes to suggest acute infarct or intracranial ischemic changes. 2. Chronic appearing periventricular white matter changes most likely microvascular ischemic change. Other etiologies including multiple sclerosis could be considered
[2019-09-17 16:39] LABS: Glucose,Whole Blood 230 mg/dL (75-99)
[2019-09-17] MEDS: PILOCARPINE 5 MG TAB PO SCH (16:58)
[2019-09-17] MEDS: FAMOTIDINE 20 MG TAB PO SCH (16:58)
[2019-09-17] MEDS: HYDROXYCHLOROQUINE SULFATE 200 MG TAB PO SCH (16:58)
[2019-09-17] MEDS: FUROSEMIDE 10 MG TAB PO SCH ×2 (16:58→21:42)
[2019-09-17 20:28] LABS: Glucose,Whole Blood 187 mg/dL (75-99)
[2019-09-17] MEDS ORDERED: PRAVASTATIN SODIUM 20 MG TAB PO SCH (21:00)
[2019-09-17] MEDS: NYSTATIN 100,000 UNIT/GM OINT 30 GM TUBE TOPICAL SCH (21:41)
[2019-09-17] MEDS: ACETAMINOPHEN TAB 500 MG TAB PO SCH (21:41)
[2019-09-17] MEDS: GABAPENTIN 100 MG CAP PO SCH (21:41)
[2019-09-17] MEDS: HEPARIN SODIUM,PORCINE 5,000 UNIT/ML 1 ML VIAL SQ SCH (21:41)
[2019-09-17] MEDS: INSULIN DETEMIR (LEVEMIR) 100 UNIT/ML SYR SQ SCH (21:43)
--- NOTE | 2019-09-17 22:11 | P.CNNES ---
History of Present Illness Consult date: 09/17/19 Reason for Consult: Dizziness Chief complaint: Dizziness History of Present Illness: HISTORY OF PRESENT ILLNESS: Thank you for allowing me to evaluate Ms. Christine Merida. Ms. Merida is an 89-year-old R-handed woman with past medical history of Diabetes, hypertension, osteoarthritis, hypothyroidism, osteoporosis, Sjogren syndrome, transferred from [facility] for dizziness and possible concern for stroke. Patient states that she noticed she was feeling lightheaded recently. Family is at bedside. 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 Patient had another colonoscopy as they could not remove the polyp completely during the first colonoscopy. Patient denies any recent fever, headache, nausea, vomiting, double vision, weakness, numbness or tingling. She has noticed that her vision has gotten more blurry recently but not acute. Family at bedside states when patient was complaining of dizziness, she had some slurred speech which improved gradually. PAST MEDICAL HISTORY: Diabetes, hypertension, osteoarthritis, hypothyroidism, osteoporosis, Sjogren syndrome PAST SURGICAL HISTORY: Bilateral hip replacements, right knee replacement, bilateral carpal tunnel release surgery HOME MEDICATION: Torsemide, sevelamer, Ranitidine, pravastatin, potassium chloride, pilocarpine, omeprazole, nystatin, magnesium oxide, loratadine, levothyroxine, probiotics, insulin, hydroxychloroquine, gabapentin, vitamin D, cyclobenzaprine, cinacalcet, carvedilol, allopurinol ALLERGIES: Ciprofloxacin, levofloxacin SOCIAL HISTORY: Never smoker. FAMILY HISTORY: of coronary artery disease. Father had a blood disorder and vascular disorder, possibly from aneurysm REVIEW OF SYSTEMS: The 14 systems are reviewed and no additional points are identified compared to the review of systems documented history and physical PHYSICAL EXAMINATION: VITAL SIGNS: HR 91 RR 15 [place] [address] O2 sat 97% on RA GEN.: NAD, pleasant and cooperative HEENT: NCAT, sclera without icterus NECK: Supple, no carotid bruit SKIN AND EXTREMITIES: Warm to touch, no edema NEURO: MENTAL STATUS: Patient alert and oriented to self, place, time. Able to name the current president. Speech fluent, able to name and repeat, following all commands readily. No right and left disorientation, neglect. CRANIAL NERVES II THROUGH XII: II: Pupils are equal and reactive to light symmetrically. No afferent pupillary defect. Visual amanda are intact. III, IV, : No ptosis. Extraocular movements full. No nystagmus. V: Facial sensation intact from V1-3. VII. No clear facial asymmetry. VIII: Hearing intact to finger rub bilaterally. IX, X: Symmetric palate elevation. XI: Shoulder shrug intact. XII: Tongue midline without fasciculation or atrophy. MOTOR: Normal bulk/tone. No pronator drift or tremor. Strength is 5/5 throughout all 4 extremities. SENSORY: Intact to light touch in all 4 extremities. Pt endorses numbness in her R finger tips. When patient sitting up and closes her eyes, she leans backwards. No obvious truncal ataxia when she sits up however. REFLEXES: 2+ throughout. Toes are downgoing. No clonus. Valerie's is absent COORDINATION: Finger to nose intact. No dysmetria. GAIT: patient able to stand on her own but difficulty taking steps on her own DIAGNOSTIC TESTING: LABORATORY: WBC 5.1 hemoglobin 11.4 platelet 233 sodium 139 potassium 4.2 chloride 105 bicarb 28 BUN 35 creatinine 1.41 glucose 148 AST 32 ALT 31 alk phos 95 troponin 0.197 IMAGING: MRI brain w/o contrast 09/16/19: No suspicious changes to suggest acute infarct or intracranial ischemic changes Chronic appearing periventricular white matter changes most likely microvascular ischemic change. Other etiologies including multiple sclerosis could be considered. ASSESSMENT/RECOMMENDATIONS: 89-year-old R-handed woman with past medical history of Diabetes, hypertension, osteoarthritis, hypothyroidism, osteoporosis, Sjogren syndrome, transferred from [facility] for dizziness and possible concern for stroke. Patient's neuro exam was largely non-focal, but there was concern about patient having this new difficulty with balance with her eyes closed while sitting and patient also had slurred speech per family. Patient with risk factors, and therefore, obtained MRI brain. MRI brain w/o contrast not showing any old or new stroke. Low concern for TIA or stroke at this time. Recommend patient to follow up with PCP within 1-2 weeks of discharge. Neurology will sign off at this time. Please contact with additional questions or concerns. Past Medical History Past Medical History: Diabetes Mellitus, Hypertension, Osteoarthritis (OA), Rheumatoid Arthritis (RA), Skin Disorder, Thyroid Disorder Additional Past Medical History / Comment(s): osteoporosis. sjogren's syndrome. HX UTI's History of Any Multi-Drug Resistant Organisms: None Reported Past Surgical History: Back Surgery, Joint Replacement, Orthopedic Surgery Additional Past Surgical History / Comment(s): bilateral hip replacements. right knee replacement. right ankle. Bilateral carpal tunnel surgery Past Anesthesia/Blood Transfusion Reactions: No Reported Reaction Past Psychological History: No Psychological Hx Reported Smoking Status: Never smoker - Past Family History Mother Family Medical History: Coronary Artery Disease (CAD) Father Family Medical History: Blood Disorder, Vascular Disorder Additional Family Medical History / Comment(s): from anuersym Medications and Allergies Home Medications Medication Instructions Recorded Confirmed Type Cyclobenzaprine [Flexeril] 10 mg PO HS 08/20/14 09/17/19 History Ergocalciferol [Vitamin D2 50,000 unit PO Q30D 08/20/14 09/17/19 History (DRISDOL)] Levothyroxine Sodium [Synthroid] 100 mcg PO DAILY 08/20/14 09/17/19 History Loratadine [Claritin] 10 mg PO DAILY 08/20/14 09/17/19 History Pravastatin Sodium [Pravachol] 20 mg PO HS 08/20/14 09/17/19 History Omeprazole 20 mg PO AC-BRKFST 04/30/16 09/17/19 History Ranitidine HCl [Zantac] 150 mg PO W/SUPPER 01/28/17 09/17/19 History Cinacalcet [Sensipar] 30 mg PO FR 02/05/17 09/17/19 History Cranberry Fruit Extract [Cranberry] 500 mg PO BID 02/05/17 09/17/19 History L.acidoph,Paracasei, B.lactis 1 cap PO DAILY@1200 02/05/17 09/17/19 History [Probiotic] Magnesium Oxide [Mag-Ox] 400 mg PO DAILY 02/05/17 09/17/19 History Pilocarpine [Salagen] 5 mg PO TID-W/MEALS 02/05/17 09/17/19 History Acetaminophen Tab [Tylenol Tab] 500 mg PO BID 08/14/18 09/17/19 History B Complex-Vit C-Vit E-Zinc [Z-Bec] 1 tab PO DAILY 08/14/18 09/17/19 History Insulin Glargine,Hum.rec.anlog 20 unit SQ HS 08/14/18 09/17/19 History [Lantus Solostar] L. Rhamnosus GG/Inulin [Culturelle 1 cap PO HS 08/14/18 09/17/19 History Probiotics Capsule] Ranitidine HCl [Zantac] 150 mg PO HS PRN 08/14/18 09/17/19 History Wheat Dextrin [Benefiber] 1 pack PO BID 08/14/18 09/17/19 History Allopurinol [Zyloprim] 100 mg PO DAILY 04/07/19 09/17/19 History Carvedilol [Coreg] 12.5 mg PO DAILY 04/07/19 09/17/19 History Clotrimazole/Betamethasone Dip 1 applic TOPICAL DAILY 04/07/19 09/17/19 History [Lotrisone Cream] Gabapentin [Neurontin] 100 mg PO HS 04/07/19 09/17/19 History Hydroxychloroquine Sulfate 200 mg PO BID-W/MEALS 04/07/19 09/17/19 History [Plaquenil] Sevelamer [Renvela] 800 mg PO DAILY@1200 04/07/19 09/17/19 History Torsemide [Demadex] 5 mg PO TID 04/07/19 09/17/19 History Acetaminophen/Diphenhydramine 1 tab PO HS 09/17/19 09/17/19 History [Tylenol PM 500-25mg] Insulin Aspart [NovoLOG Flexpen] See Protocol SQ ACHS 09/17/19 09/17/19 History Nystatin 1 applic TOPICAL BID 09/17/19 09/17/19 History Potassium Chloride [K-Tab ER] 10 meq PO DAILY 09/17/19 09/17/19 History Allergies Allergy/AdvReac Type Severity Reaction Status Date / Time ciprofloxacin [From Cipro] Allergy Unknown Verified 09/17/19 07:12 levofloxacin [From Levaquin] Allergy Rash/Hives Verified 09/17/19 07:12 Physical Examination - Vital Signs Vital Signs: Vital Signs Temp Pulse Resp BP Pulse Ox 09/17/19 07:30 91 15 161/90 97 09/17/19 05:07 88 18 173/82 96 09/17/19 04:30 89 12 161/88 95 09/17/19 04:00 170/97 09/17/19 03:30 90 11 L 176/94 94 L 09/17/19 03:00 91 14 173/85 96 09/17/19 02:51 96 09/17/19 02:49 97.9 F 92 18 173/85 98 Intake and Output 09/16/19 09/17/19 09/17/19 22:59 06:59 14:59 Other: Weight 81.647 kg Results - Laboratory Findings CBC and BMP: 09/17/19 06:06 09/17/19 06:06 Abnormal Lab Findings: Abnormal Labs 09/17/19 09/17/19 03:31 06:01 POC Glucose (mg/dL) 135 H Troponin I 0.197 H*
[2019-09-18 02:04] LABS: Glucose,Whole Blood 222 mg/dL (75-99)
[2019-09-18 04:35] LABS: Cholesterol 137 mg/dL (<200); HDL Cholesterol 67 mg/dL (40-60); LDL Cholesterol,Calculated 58 mg/dL (0-99); Triglycerides 62 mg/dL (<150)
[2019-09-18 06:13] LABS: Glucose,Whole Blood 175 mg/dL (75-99)
[2019-09-18] MEDS: HYDROXYCHLOROQUINE SULFATE 200 MG TAB PO SCH (06:34)
[2019-09-18] MEDS: PILOCARPINE 5 MG TAB PO SCH ×2 (06:34→17:21)
[2019-09-18] MEDS: LEVOTHYROXINE 100 MCG TAB PO SCH (06:35)
[2019-09-18] MEDS: PANTOPRAZOLE 40 MG TABLET PO SCH (06:35)
[2019-09-18] MEDS: FUROSEMIDE 10 MG TAB PO SCH ×3 (06:35→20:56)
[2019-09-18] MEDS: INSULIN ASPART (NovoLOG) 100 UNIT/ML VIAL SQ SCH ×4 (06:36→20:57)
[2019-09-18] MEDS: SODIUM CHLORIDE 0.9% 1,000 ML IV SCH ×2 (06:36→22:24)
[2019-09-18] MEDS: ASPIRIN 325 MG TAB PO SCH ×2 (06:44→07:53)
[2019-09-18] MEDS ORDERED: CARVEDILOL 12.5 MG TAB PO SCH (07:30)
[2019-09-18] MEDS: HEPARIN SODIUM,PORCINE 5,000 UNIT/ML 1 ML VIAL SQ SCH ×2 (07:53→20:55)
[2019-09-18] MEDS: CLOTRIMAZOLE/BETAMETH 1-0.05% CREAM 45 GM TUBE TOPICAL SCH (07:53)
[2019-09-18] MEDS: ACETAMINOPHEN TAB 500 MG TAB PO SCH ×2 (07:54→20:56)
[2019-09-18] MEDS: LORATADINE 10 MG TAB PO SCH (07:54)
[2019-09-18] MEDS: ALLOPURINOL 100 MG TAB PO SCH (07:54)
[2019-09-18] MEDS: MAGNESIUM OXIDE 400 MG TAB PO SCH (07:54)
[2019-09-18] MEDS: DOCUSATE 100 MG CAP PO SCH ×3 (07:54→22:52)
[2019-09-18] MEDS: NYSTATIN 100,000 UNIT/GM OINT 30 GM TUBE TOPICAL SCH ×2 (07:55→21:01)
--- NOTE | 2019-09-18 08:37 | ECHOF ---
Referral Reason:CHF MEASUREMENTS -------- HEIGHT: 160.0 cm WEIGHT: 81.6 kg BP: 185/61 RVIDd: 3.7 cm (< 3.3) IVSd: 2.4 cm (0.6 - 1.1) LVIDd: 2.4 cm (3.9 - 5.3) LVPWd: 1.8 cm (0.6 - 1.1) IVSs: 2.5 cm LVIDs: 1.6 cm LVPWs: 2.1 cm LAESV Index (A-L): 48.12 ml/m Ao Diam: 2.5 cm (2.0 - 3.7) AV Cusp: 1.7 cm (1.5 - 2.6) MV E Manjeet: 1.48 m/s MV DecT: 333 ms MV A Manjeet: 1.74 m/s MV E/A Ratio: 0.85 RAP: 5.00 mmHg RVSP: 31.95 mmHg FINDINGS -------- Sinus rhythm. This was a technically good study. The left ventricular size is normal. There is severe concentric left ventricular hypertrophy. Ove rall left ventricular systolic function is normal with, an EF between 55 - 60 %. Left ventricular f illimg pressure cannot be estimated due to severe mitral annular calcification. The right ventricle is mild to moderately enlarged. LA is severely dilated >40 ml/m2 The right atrium is mildly enlarged. Interatrial and interventricular septum intact. The aortic valve is trileaflet and appears structurally normal. There is mild aortic valve sclerosi s. There is no evidence of aortic regurgitation. There is no evidence of aortic stenosis. Severe mitral annular calcification present. Moderate mitral regurgitation is present. The peak and mean MV gradients are 17.03mmHg 10.41mmHg as measured by doppler. Moderate mitral stenosis , wi th a MVA of 1.7cm (by PHT) Mild tricuspid regurgitation present. There is no evidence of pulmonary hypertension. The right v entricular systolic pressure, as measured by Doppler, is 31.95mmHg. There is no pulmonic regurgitation present. The aortic root size is normal. IVC Not well visulized. There is a trivial pericardial effusion present. CONCLUSIONS -------- 1. Sinus rhythm. 2. This was a technically good study. 3. The left ventricular size is normal. 4. There is severe concentric left ventricular hypertrophy. 5. Overall left ventricular systolic function is normal with, an EF between 55 - 60 %. 6. Left ventricular fillimg pressure cannot be estimated due to severe mitral annular calcification. 7. The right ventricle is mild to moderately enlarged. 8. LA is severely dilated >40 ml/m2 9. The right atrium is mildly enlarged. 10. Interatrial and interventricular septum intact. 11. The aortic valve is trileaflet and appears structurally normal. 12. There is mild aortic valve sclerosis. 13. There is no evidence of aortic regurgitation. 14. There is no evidence of aortic stenosis. 15. Severe mitral annular calcification present. 16. Moderate mitral regurgitation is present. 17. The peak and mean MV gradients are 17.03mmHg 10.41mmHg as measured by doppler. 18. Moderate mitral stenosis. 19. , with a MVA of 1.7cm (by PHT) 20. Mild tricuspid regurgitation present. 21. There is no evidence of pulmonary hypertension. 22. The right ventricular systolic pressure, as measured by Doppler, is 31.95mmHg. 23. There is no pulmonic regurgitation present. 24. The aortic root size is normal. 25. IVC Not well visulized. 26. There is a trivial pericardial effusion present. PRODUCTION SUPERVISOR OFF SHIFT: Rosetta Hancock RDCS
[2019-09-18] MEDS ORDERED: CINACALCET 30 MG TAB PO SCH (09:00)
[2019-09-18 11:51] VITALS: BMI 32.3
[2019-09-18 12:03] LABS: Glucose,Whole Blood 192 mg/dL (75-99)
[2019-09-18] MEDS: SEVELAMER 800 MG TAB PO SCH (12:09)
--- NOTE | 2019-09-18 14:12 | CONS ---
CONSULTATION ATTENDING PHYSICIAN: Dr. Soto HISTORY OF PRESENT ILLNESS: Mrs. Merida is an 89-year-old female with a known history of hypertension, hyperlipidemia, chronic kidney disease, who has the prior diagnosis of CHF and a heart murmur, who presented with symptoms of dizziness, slurred speech and visual disturbance that resolved. She is limited in her physical activity but has no exertional chest discomfort and no change in her breathing. She denies any palpitation. She has some dizziness but no syncope. She has no PND, no orthopnea, but she has chronic peripheral edema. She had minimally elevated troponin and cardiology consultation was requested. The patient denies any symptoms to suggest angina pectoris and has no history of obstructive coronary artery disease. Her coronary risk factors are remarkable for hypertension, hyperlipidemia, diabetes mellitus. MEDICATION: Include: 1. Demadex 5 mg 3 times a day. 2. Renvela. 3. Zantac. 4. Pravastatin 20 mg daily. 5. Salagen. 6. Omeprazole. 7. Max oxide. 8. Synthroid. 9. Insulin. 10.Plaquenil. 11.Drisdol. 12.Flexeril. 13.Sensipar. 14.Coreg 12.5 mg daily. 15.Vitamin B. 16.Zyloprim. 17.Tylenol. REVIEW OF SYSTEMS: RESPIRATORY system: She has no documented history of asthma, emphysema or bronchitis. GI system: She had an episode of GI bleeding, underwent colonoscopy and polypectomy. system: No dysuria or hematuria. Nervous system: No history of stroke or seizure. PHYSICAL EXAMINATION: She is an 89-year-old female, alert, oriented, in no apparent distress. Blood pressure 131/100 with a heart rate in the 70s. HEAD: Normocephalic. Eyes: Sclerae anicteric. Neck: Good upstroke. No bruit. No jugular venous distention. LUNGS: Clear to auscultation. HEART: Regular rate and rhythm S1, S2. No S3 with a systolic murmur heard at the base, ejection type. No diastolic murmur. No rub. ABDOMEN: Soft, nontender. Positive bowel sounds. No organomegaly. EXTREMITIES: 1+ edema bilaterally. LAB DATA: Lab data revealed BUN and creatinine 35 and 1.41, hemoglobin of 11.4, potassium 4.2. Troponin 0.197, 0.181 and 0.183. Her cholesterol is 137. Her LDL is 58. Her EKG revealed sinus mechanism with right bundle branch block and nonspecific ST-T wave changes. Her brain MRI showed no acute mass or infarct. She had an echocardiogram that revealed concentric left ventricular hypertrophy, preserved left ventricular systolic function with severe mitral anulus calcification with moderate mitral regurgitation. IMPRESSION: 1. Symptoms suggestive of transient ischemic attack, resolved. 2. Hypertension, remains elevated. 3. Elevated troponin, most likely related to the chronic kidney disease. No symptoms to suggest acute coronary syndrome. 4. Hypertension remains elevated. 5. Hyperlipidemia. 6. Diabetes. RECOMMENDATION: From the cardiac standpoint, I will increase the dose of her carvedilol to 12.5 mg twice a day. Continue rest of medical regimen. Patient has an appointment with Dr. Oliver next week and she will follow up with him as scheduled. I do not see any indication for further cardiac workup at this point. Thank you for this consult. We will follow with you. MMLAMONTL / IJN: [id number] /
[2019-09-18 15:09] LABS: Hemoglobin A1C 6.4 % (4.0-6.0)
[2019-09-18 16:33] LABS: Calcium 9.5 mg/dL (8.4-10.2); Potassium 4.7 mmol/L (3.5-5.1)
[2019-09-18 16:47] LABS: Glucose,Whole Blood 131 mg/dL (75-99)
[2019-09-18] MEDS: FAMOTIDINE 20 MG TAB PO SCH (17:21)
[2019-09-18] MEDS: CARVEDILOL 12.5 MG TAB PO SCH (17:21)
[2019-09-18 20:12] LABS: Glucose,Whole Blood 188 mg/dL (75-99)
[2019-09-18] MEDS: GABAPENTIN 100 MG CAP PO SCH (20:56)
[2019-09-18] MEDS: INSULIN DETEMIR (LEVEMIR) 100 UNIT/ML SYR SQ SCH (20:57)
[2019-09-18] MEDS ORDERED: PRAVASTATIN SODIUM 40 MG TAB PO SCH (21:00)
[2019-09-19 02:19] LABS: Glucose,Whole Blood 64 mg/dL (75-99)
[2019-09-19 02:35] LABS: Glucose,Whole Blood 86 mg/dL (75-99)
[2019-09-19 06:13] LABS: Glucose,Whole Blood 51 mg/dL (75-99)
[2019-09-19] MEDS: INSULIN ASPART (NovoLOG) 100 UNIT/ML VIAL SQ SCH ×3 (06:15→17:02)
[2019-09-19 06:27] LABS: Glucose,Whole Blood 67 mg/dL (75-99)
[2019-09-19 06:43] LABS: Glucose,Whole Blood 84 mg/dL (75-99)
[2019-09-19] MEDS: HYDROXYCHLOROQUINE SULFATE 200 MG TAB PO SCH ×2 (06:48→17:00)
[2019-09-19] MEDS: CARVEDILOL 12.5 MG TAB PO SCH ×2 (06:48→17:00)
[2019-09-19] MEDS: LEVOTHYROXINE 100 MCG TAB PO SCH (06:48)
[2019-09-19] MEDS: PANTOPRAZOLE 40 MG TABLET PO SCH (06:48)
[2019-09-19] MEDS: PILOCARPINE 5 MG TAB PO SCH ×3 (06:48→17:00)
[2019-09-19] MEDS: ALLOPURINOL 100 MG TAB PO SCH (08:32)
[2019-09-19] MEDS: LORATADINE 10 MG TAB PO SCH (08:32)
[2019-09-19] MEDS: FUROSEMIDE 10 MG TAB PO SCH ×2 (08:32→17:00)
[2019-09-19] MEDS: HEPARIN SODIUM,PORCINE 5,000 UNIT/ML 1 ML VIAL SQ SCH (08:32)
[2019-09-19] MEDS: MAGNESIUM OXIDE 400 MG TAB PO SCH (08:32)
[2019-09-19] MEDS: CLOTRIMAZOLE/BETAMETH 1-0.05% CREAM 45 GM TUBE TOPICAL SCH (08:33)
[2019-09-19] MEDS: ACETAMINOPHEN TAB 500 MG TAB PO SCH (08:33)
[2019-09-19] MEDS: NYSTATIN 100,000 UNIT/GM OINT 30 GM TUBE TOPICAL SCH (08:34)
[2019-09-19] MEDS: DOCUSATE 100 MG CAP PO SCH ×2 (08:35→12:39)
[2019-09-19 08:45] LABS: HCT 34.5 % (34.0-46.0); HGB 11.6 gm/dL (11.4-16.0); MCH 32.7 pg (25.0-35.0); MCHC 33.7 g/dL (31.0-37.0); Platelet Count 217 k/uL (150-450); RBC 3.56 m/uL (3.80-5.40); RDW 13.3 % (11.5-15.5); WBC 9.3 k/uL (3.8-10.6)
[2019-09-19 09:00] LABS: Calcium 8.9 mg/dL (8.4-10.2); Potassium 4.2 mmol/L (3.5-5.1)
[2019-09-19] MEDS ORDERED: ASPIRIN 81 MG PO SCH (09:00)
[2019-09-19 11:55] LABS: Glucose,Whole Blood 233 mg/dL (75-99)
[2019-09-19] MEDS: SEVELAMER 800 MG TAB PO SCH (12:41)
[2019-09-19 15:37] VITALS: BP 157/76; PULSE 82; RESP 19; TEMP 97.7
[2019-09-19 16:08] LABS: Appearance,Urine Clear (Clear); Bilirubin,Urine Negative (Negative); Blood,Urine Negative (Negative); Color,Urine Light Yellow; Glucose,Urine (UA) Negative (Negative); Ketones,Urine Negative (Negative); Leukocyte Esterase,Urine Negative (Negative); Nitrite,Urine Negative (Negative); PH, Urine 6.5 (5.0-8.0); Protein,Urine Negative (Negative); Specific Gravity,Urine 1.009 (1.001-1.035); Urobilinogen,Urine <2.0 mg/dL (<2.0)
[2019-09-19 16:59] LABS: Glucose,Whole Blood 142 mg/dL (75-99)
[2019-09-19] MEDS: FAMOTIDINE 20 MG TAB PO SCH (17:00)
== END 2019-09-19 18:35 | disposition home health service (06) | DRG 149 ==
LOC: EC 02:47 → 3SCARD 03:05
PROVIDERS: ADMIT Hospitalist; ATTEND Hospitalist
DX: R42 Dizziness and giddiness (principal); I13.0 Hypertensive heart and chronic kidney disease with heart failure and stage 1 through stage 4 chronic kidney disease, or unspecified chronic kidney disease; N39.0 Urinary tract infection, site not specified; E03.9 Hypothyroidism, unspecified; E11.22 Type 2 diabetes mellitus with diabetic chronic kidney disease; E11.42 Type 2 diabetes mellitus with diabetic polyneuropathy; E78.5 Hyperlipidemia, unspecified; I45.10 Unspecified right bundle-branch block; I50.9 Heart failure, unspecified; M06.9 Rheumatoid arthritis, unspecified; M35.00 Sjogren syndrome, unspecified; M81.0 Age-related osteoporosis without current pathological fracture; N18.3 Chronic kidney disease, stage 3 (moderate); Z66 Do not resuscitate; Z79.890 Hormone replacement therapy; Z79.899 Other long term (current) drug therapy; Z82.49 Family history of ischemic heart disease and other diseases of the circulatory system; Z87.440 Personal history of urinary (tract) infections; Z96.643 Presence of artificial hip joint, bilateral; Z96.651 Presence of right artificial knee joint; Z88.1 Allergy status to other antibiotic agents
CPT/HCPCS: 70551; 80048; 80053; 80061; 81003; 83036; 84484; 85025; 85027; 93306; 99285

== ENCOUNTER → 2020-06-09 | Outpatient (CLI) | payer MEDICARE ==
--- NOTE | 2020-06-09 13:09 | US ---
EXAMINATION TYPE: US kidneys/renal and bladder DATE OF EXAM: 06/09/2020 COMPARISON: NONE CLINICAL HISTORY: 89-year-old female N18.4 Chronic kidney disease stage 4. Diabetic TECHNIQUE: Multiple sonographic images of the kidneys and bladder are obtained. FINDINGS: EXAM MEASUREMENTS: Right Kidney: 7.9 x 4.9 x 4.2 cm Left Kidney: 7.0 x 4.2 x 3.8 cm Post Void Residual Volume: 1.1 mL Corrosion Engineer notes: Kidneys are technically difficult to image due to overlying bowel gas Kidneys: No hydronephrosis. Bladder: wnl Bilateral Jets seen: not seen after 3 minute observation Normal Post Void Residual: yes IMPRESSION: 1. Limited detailed evaluation of the kidneys due to overlying bowel gas. No hydronephrosis seen. 2. Small kidney size suggests chronic medical renal disease.
== END | disposition home or self-care (01) ==
LOC: RADUSWWP 11:37
PROVIDERS: ATTEND Internal Medicine Nephrology
DX: N27.9 Small kidney, unspecified (principal); N18.4 Chronic kidney disease, stage 4 (severe)
CPT/HCPCS: 76770